=== PATIENT | male | born 1950 ===

== ENCOUNTER 2017-02-16 11:14 | Inpatient (IN) ==
[2017-02-16] MEDS ORDERED: ONDANSETRON 4 MG/2 ML VIAL IV PRN (11:17)
[2017-02-16] MEDS ORDERED: ACETAMINOPHEN 325 MG TABLET PO PRN (11:17)
[2017-02-16] MEDS ORDERED: SODIUM CHLORIDE 0.9% 1,000 ML IV SCH (11:30)
--- NOTE | 2017-02-16 15:52 | Nephrology Consult Note ---
History of Present Illness Chief complaint: ESRD History of present illness: Mr. Anderson is a 66 year old male with end-stage renal disease with dialysis [facility] dialysis unit Monday. His last dialysis was on February 13. He missed dialysis yesterday due to what he describes as "difficulties getting his shower". He presented today with a complaint of a cool left leg and was referred and underwent a CT angiogram today results of which are pending. Potassium was 3.3 at the referring hospital today He is known to have peripheral vascular disease and is status post right below- knee amputation. He is status post laryngectomy for laryngeal cancer. He has a permanent trach. He continues to smoke cigarettes. Physical exam he is able to lie flat and is in no distress with a clear chest. Trach is patent abdomen soft nontender extremities no edema right below knee amputation stump well-healed left heel with dressing in place and both lower extremities below mid are cool. He is not describing any severe pain in the left leg. Impression end-stage renal disease #2 peripheral vascular disease #3 history of laryngeal cancer and status post laryngectomy Plan: Hemodialysis tomorrow and he will be back on his usual Monday schedule. Home Medications Medication Instructions Recorded Confirmed Type Omeprazole [Prilosec] 20 mg PO DAILY 03/28/16 10/08/16 History Carvedilol 6.25 mg PO BID 07/27/16 10/08/16 History Gabapentin Cap/Tab [Neurontin 300 mg PO BEDTIME 07/27/16 10/08/16 History Cap/Tab] Aspirin EC Tab 325 mg PO DAILY 08/16/16 10/08/16 History Atorvastatin [Lipitor] 10 mg PO BEDTIME 08/16/16 10/08/16 History Brimonidine 0.1% Oph Soln 1 drop BOTH EYES TID 08/16/16 10/08/16 History [Alphagan P 0.1% Oph Soln] Calcium Acetate [Phoslo] 2,001 mg PO TID W/MEALS 08/16/16 10/08/16 History Calcium Acetate [Phoslo] 667 mg PO WITH SNACKS 08/16/16 10/08/16 History amLODIPine [Norvasc] 10 mg PO DAILY 08/16/16 10/08/16 History HYDROcodone/ACETAMIN 10-325 [[place] 7.5 tablet PO Q6HR 10/08/16 10/08/16 History 10-325] Allergies Allergy/AdvReac Type Severity Reaction Status Date / Time No Known Allergies Allergy Verified 10/05/16 16:34 Medical,Surgical,& Family Hx - Medical History Cardio: History of: Cerebrovascular Disease, CHF, CAD, Hypertension, [place], PVD, Cardiovascular Problems No history of: Aneurysm, Cardiac Dysrhythmia, Congenital Heart Disease, Pacemaker, Valvular Heart Disease Psychological: No history of: Anxiety Disorders, ADHD, Behavior Problems, Bipolar Disorder, Depression, Previous Suicide Attempt, Psychiatric/Substance Abuse Tx, Schizophrenia, Violent Behavior, Psychiatric Problems Neurology: History of: Cerebrovascular Accident, Peripheral Neuropathy No history of: Brain Aneurysm, Cerebral Hemorrhage, Cerebral Palsy, Dementia , Migraine, Multiple Sclerosis, Parkinson's Disease, Seizures, TIA, Vertigo, Neurologocal Cancer HEENT: History of: Ear Problem (hard of hearing), Glaucoma, Oral Cancer ( Laryngeal Cancer), HEENT Problems (Old Stoma Site from laryngeal cancer removal) No history of: Dental Problems Endocrine: History of: Diabetes Mellitus (IDDM), Diabetes Mellitus (NIDDM), Dyslipidemia No history of: Adrenal Disease, Thyroid Disorder, Endocrine Cancer, Endocrine Problems Rheumatology: History of;: Rheumatoid Arthritis No history of;: Fibromyalgia, Gout, Myasthenia Gravis, Psoriasis, Sjogrens, Systemic Lupus Erythematosus Respiratory: History of: Asthma, COPD, Intubation, Lung Cancer, Respiratory Problems (pt has stoma with strong cough) No history of: Obstructive Sleep Apnea, Pulmonary Embolism, Pulmonary Hypertension, Pneumonia Renal: History of: Dialysis ([facility], Follows with ), Renal Failure, Renal Problems (ESRD) No history of: Renal (Kidney) Cancer Genitourinary: No history of: Bladder Problem, Kidney Stones, Prostate Problems, Recurring Urinary Tract Infections, Genitourinary Cancer Comment Only: Problems (does not void) Gastrointestinal: No history of: Bowel Obstruction, Clostridium Difficile, Crohn's Disease, Diverticulitis/ Diverticulosis, Esophageal Varices, GERD, Gastrointestinal Bleed , Hemorrhoids, Hematochezia, Hepatitis, Liver Problems, Pancreatitis, Polyps, Ulcerative Colitis, Gastrointestinal Cancer, GI Problems Musculoskeletal: History of: Amputation (Right BKA), Back/Neck Problems No history of: Degenerative Disk Disease, Herniated Disk, Osteoporosis, Musculoskeletal Cancer, Musculoskeletal Problems (left lower leg arterial insufficiency, pain , skin brk down, noted on admit) Hematology: History of: Anemia No history of: Blood Transfusion Reaction, Bleeding Problems, Clotting Problems, Sickle Cell Disease, Hematologic Cancer, Blood Disorders Other: History of: Cancer (Hx. of Laryngeal Cancer), Miscellaneous Medical Problems (Right Groin Dialysis Catheter) No history of: Anesthesia Reactions, Anaphylaxis, Eczema, HIV, Malignant Hyperthermia, MRSA, Vancomycin-Resistant Enterococci - Surgical History Cardiac Surgeries: Sugical HX of: Cardiac Catheterization, Vascular Access Devices Patient Denies: Femoral-Popliteal Bypass Graft, Cardiac Surgery, Carotid Endarterectomy, Internal Defibrillator Thoracic Surgeries: Surgical HX of;: Lobectomy (hx of Ca of throat with hx of surg.) Patient denies;: Kidney (Renal Surgery), Lithotripsy, Nephrectomy, Organ Transplant Neurologic Surgeries: Patient denies: Brain Aneurysm, Cerebral Hemorrhage, Neurologic Surgery HEENT Surgeries: Patient denies: Carotid Endarterectomy, Thyroid Surgery Abdominal Surgeries: Patient denies: Abdominal Surgery, Appendectomy, Colonoscopy, Gastric Bypass Surgery, EGD, Hernia Repair, Splenectomy Reproductive Surgeries: Surgical HX of;: Genitourinary Surgery ("they make me go to dialysis") Patient denies;: Cystoscopy, Prostate Surgery - Family History Family History: Reports;: Family Diabetes, Family Heart Disease (Father), Family Hypertension Denies;: Family Anesthesia Reaction, Family Cancer, Family Psychiatric Problems, Family Stroke - Social History Smoking Status: Smoker, status unknown Frequency of Alcohol Use: None Type of Drug Use: None Review of Systems 12 point system: reviewed and no additional remarkable complaints except as stated Exam - Vital Signs Vital signs: Period Temp Pulse Resp BP Sys/Madsen Pulse Ox Last 24 Hr 97.0 F 97 20 121/87 97 - General Appearance General appearance: well-developed, well-nourished, appears started age EENT: ATNC Neck: no JVD, no thyromegaly, no carotid bruit, supple Respiratory: no kyphosis, no scoliosis Cardiology: no murmurs, no rub, no gallops, no edema, regular rate, regular rhythm, normal S1, normal S2 Gastrointestinal: normoactive bowel sounds Integumentary: no rash, warm and dry Neurologic: no focal deficit, no asterixis, alert and oriented x3, reflexes 2+ and symmetric, gait normal, strength 5/5 Musculoskeletal: no deformities, no erythema, no cyanosis, no clubbing Psychiatric: mood/affect appropriate, cooperative Additional exam: R DANNIEA. Permanent tracheostomy Assessment and Plan - Time spent with patient Time spent with patient: Greater than 30 minutes (1) ESRD on hemodialysis Status: Chronic Current Visit: No (2) Diabetes Status: Chronic Current Visit: No Qualifiers: Diabetes mellitus type: type 2 Diabetes mellitus complication detail: with chronic kidney disease Chronic kidney disease stage: on chronic dialysis (3) Tobacco abuse Status: Chronic Current Visit: No (4) Peripheral vascular disease Status: Acute Current Visit: Yes Specialty Discharge - Follow Up or Referrals - Speciality Discharge Instructions Nephrology Instructions: Hemodialysis in AM
--- NOTE | 2017-02-16 18:16 | Event Note ---
02/16/2017 1800 hrs. Patient is complaining of wrist pain in that left foot at this time. It is cool to the touch and he has an ulcer at the heel and the tip of the toe. CTA was done today shows a large amount of collateral flow there may be a significantly narrowed area in the mid femoral region. There is a question in my mind is whether or not there is any flow at the ankle into the foot at this time from what I can see in the CTA. Patient is for dialysis tomorrow will try to manage his pain and discomfort at this point but look at the possibility that he may need an amputation. We will plan to consult Dr. Bird to look at this vascular process see if he thinks anything could be done to that at this time. Whether that would prevent him from having an amputation I am not sure at this point but have my doubts.
--- NOTE | 2017-02-16 18:24 | General Surg History&Physical ---
Assessment and Plan - Time spent with patient Time spent with patient: Greater than 30 minutes (1) Peripheral vascular disease Status: Acute Assessment and plan: Impression: Peripheral arterial disease of the left lower extremity with rest pain of the foot and ulcerations. Plan: Basic wound care We will consult Dr. Bird for evaluation to see if there is anything that might improve circulation. May be facing possible amputation. Current Visit: No (2) End stage renal disease on dialysis Problem details: Tolerated HD yesterday s complications. Routine HD Monday. UF to EDW as tolerated by hemodynamics. Status: Chronic Assessment and plan: Impression: Chronic renal failure dialysis patient Plan: Nephrology to manage Current Visit: No (3) Status post below knee amputation of right lower extremity Status: Chronic Assessment and plan: Impression status post right BKA amputation secondary to poor circulation Current Visit: No (4) Diabetes Status: Chronic Assessment and plan: Impression: Diabetes mellitus adult onset Medical manage Current Visit: No Qualifiers: Diabetes mellitus type: type 2 Diabetes mellitus complication detail: with chronic kidney disease Chronic kidney disease stage: on chronic dialysis (5) History of laryngectomy Status: Chronic Assessment and plan: Impression: Status post laryngectomy for cancer stable with no evidence of any recurrence Current Visit: No History of Present Illness Chief complaint: Increasing pain and discomfort of the left foot History of present illness: Mr. Anderson is a 66 year old male diabetic chronic renal failure patient who was transferred down here as a direct admit because Ramsay was telling us how ischemic and bad the left foot appeared. He was admitted and renal was consulted. A CTA was performed on the patient which showed us better flow than we anticipated but it seems to cut off at the level of the ankle. There is a narrowed area in the mid femoral vessels that might be amenable to a stent. Will consult Dr. Bird to evaluate to see what his recommendations might be. There is a history that Dr. Faria may have done some vascular reconstruction on this patient in the past eventually he had a failure that resulted in a right BKA. Will start some wound care to the ulcers of the left foot while we are getting him dialyzed to get evaluated vascular caruso. I am suspecting that we are going to be forced to consider an amputation on the left. Home Medications Medication Instructions Recorded Confirmed Type Omeprazole [Prilosec] 20 mg PO DAILY 03/28/16 10/08/16 History Carvedilol 6.25 mg PO BID 07/27/16 10/08/16 History Gabapentin Cap/Tab [Neurontin 300 mg PO BEDTIME 07/27/16 10/08/16 History Cap/Tab] Aspirin EC Tab 325 mg PO DAILY 08/16/16 10/08/16 History Atorvastatin [Lipitor] 10 mg PO BEDTIME 08/16/16 10/08/16 History Brimonidine 0.1% Oph Soln 1 drop BOTH EYES TID 08/16/16 10/08/16 History [Alphagan P 0.1% Oph Soln] Calcium Acetate [Phoslo] 2,001 mg PO TID W/MEALS 08/16/16 10/08/16 History Calcium Acetate [Phoslo] 667 mg PO WITH SNACKS 08/16/16 10/08/16 History amLODIPine [Norvasc] 10 mg PO DAILY 08/16/16 10/08/16 History HYDROcodone/ACETAMIN 10-325 [[place] 7.5 tablet PO Q6HR 10/08/16 10/08/16 History 10-325] Allergies Allergy/AdvReac Type Severity Reaction Status Date / Time No Known Allergies Allergy Verified 10/05/16 16:34 Medical,Surgical,& Family Hx - Medical History Cardio: History of: Cerebrovascular Disease, CHF, CAD, Hypertension, [place], PVD, Cardiovascular Problems No history of: Aneurysm, Cardiac Dysrhythmia, Congenital Heart Disease, Pacemaker, Valvular Heart Disease Psychological: No history of: Anxiety Disorders, ADHD, Behavior Problems, Bipolar Disorder, Depression, Previous Suicide Attempt, Psychiatric/Substance Abuse Tx, Schizophrenia, Violent Behavior, Psychiatric Problems Neurology: History of: Cerebrovascular Accident, Peripheral Neuropathy No history of: Brain Aneurysm, Cerebral Hemorrhage, Cerebral Palsy, Dementia , Migraine, Multiple Sclerosis, Parkinson's Disease, Seizures, TIA, Vertigo, Neurologocal Cancer HEENT: History of: Ear Problem (hard of hearing), Glaucoma, Oral Cancer ( Laryngeal Cancer), HEENT Problems (Old Stoma Site from laryngeal cancer removal) No history of: Dental Problems Endocrine: History of: Diabetes Mellitus (IDDM), Diabetes Mellitus (NIDDM), Dyslipidemia No history of: Adrenal Disease, Thyroid Disorder, Endocrine Cancer, Endocrine Problems Rheumatology: History of;: Rheumatoid Arthritis No history of;: Fibromyalgia, Gout, Myasthenia Gravis, Psoriasis, Sjogrens, Systemic Lupus Erythematosus Respiratory: History of: Asthma, COPD, Intubation, Lung Cancer, Respiratory Problems (pt has stoma with strong cough) No history of: Obstructive Sleep Apnea, Pulmonary Embolism, Pulmonary Hypertension, Pneumonia Renal: History of: Dialysis ([facility], Follows with ), Renal Failure, Renal Problems (ESRD) No history of: Renal (Kidney) Cancer Genitourinary: No history of: Bladder Problem, Kidney Stones, Prostate Problems, Recurring Urinary Tract Infections, Genitourinary Cancer Comment Only: Problems (does not void) Gastrointestinal: No history of: Bowel Obstruction, Clostridium Difficile, Crohn's Disease, Diverticulitis/ Diverticulosis, Esophageal Varices, GERD, Gastrointestinal Bleed , Hemorrhoids, Hematochezia, Hepatitis, Liver Problems, Pancreatitis, Polyps, Ulcerative Colitis, Gastrointestinal Cancer, GI Problems Musculoskeletal: History of: Amputation (Right BKA), Back/Neck Problems No history of: Degenerative Disk Disease, Herniated Disk, Osteoporosis, Musculoskeletal Cancer, Musculoskeletal Problems (left lower leg arterial insufficiency, pain , skin brk down, noted on admit) Hematology: History of: Anemia No history of: Blood Transfusion Reaction, Bleeding Problems, Clotting Problems, Sickle Cell Disease, Hematologic Cancer, Blood Disorders Other: History of: Cancer (Hx. of Laryngeal Cancer), Miscellaneous Medical Problems (Right Groin Dialysis Catheter) No history of: Anesthesia Reactions, Anaphylaxis, Eczema, HIV, Malignant Hyperthermia, MRSA, Vancomycin-Resistant Enterococci - Surgical History Cardiac Surgeries: Sugical HX of: Cardiac Catheterization, Vascular Access Devices Patient Denies: Femoral-Popliteal Bypass Graft, Cardiac Surgery, Carotid Endarterectomy, Internal Defibrillator Thoracic Surgeries: Surgical HX of;: Lobectomy (hx of Ca of throat with hx of surg.) Patient denies;: Kidney (Renal Surgery), Lithotripsy, Nephrectomy, Organ Transplant Neurologic Surgeries: Patient denies: Brain Aneurysm, Cerebral Hemorrhage, Neurologic Surgery HEENT Surgeries: Patient denies: Carotid Endarterectomy, Thyroid Surgery Abdominal Surgeries: Patient denies: Abdominal Surgery, Appendectomy, Colonoscopy, Gastric Bypass Surgery, EGD, Hernia Repair, Splenectomy Reproductive Surgeries: Surgical HX of;: Genitourinary Surgery ("they make me go to dialysis") Patient denies;: Cystoscopy, Prostate Surgery - Family History Family History: Reports;: Family Diabetes, Family Heart Disease (Father), Family Hypertension Denies;: Family Anesthesia Reaction, Family Cancer, Family Psychiatric Problems, Family Stroke - Social History Smoking Status: Smoker, status unknown Frequency of Alcohol Use: None Type of Drug Use: None Exam - Constitutional Vitals: Period Temp Pulse Resp BP Sys/Madsen Pulse Ox Last 24 Hr 97.0 F 97 20 121/87 97 General appearance: mild distress - Head Head exam: Present: normal inspection - ENT ENT exam: Present: normal exam - Neck Neck exam: Present: normal inspection - Respiratory Respiratory exam: Present: clear to auscultation bilaterally, rales - Cardiovascular Cardiovascular exam: Present: RRR - GI/Abdominal GI/Abdominal exam: Present: normal bowel sounds, soft - Extremities Exam Extremities exam: Present: other (Right BKA amputation. Left foot is cool with an ulcer at the tip of the first toe and ulcer of the left heel. There is some discoloration of the forefoot at this time.) - Back Exam Back exam: Present: normal inspection - Neurological Exam Neurological exam: Present: alert, oriented X3, CN II-XII intact - Skin Skin exam: Present: normal color, warm, dry 12 point system: reviewed and no additional remarkable complaints except as stated Quality Measures - VTE Contraindication to Pharmacological VTE Prophylaxis: High Risk of Bleeding Contraindication to Mechanical VTE Prophylaxis: Ischemic Vascular Disease Results - Labs Lab Results: I have reviewed the past 24 hour labs
[2017-02-16] MEDS ORDERED: CALCIUM ACETATE 667 MG CAPSULE PO SCH (18:30)
--- NOTE | 2017-02-16 18:54 | CT Report ---
Exam: CT angio abdomen/femoral Date: 02/16/2017 11:27 AM Comparison: Prior CTA 12/01/2015, Indication: Peripheral vascular disease, history of right [id number] amputation Technical: Axial CT imaging was performed from the lung bases through the iliac crest with to the toes. Coronal and sagittal reformatted images were additionally created and submitted for review. 3-D Maximal intensity projection images of the vasculature were additionally created and are available for review. 100 cc of Omnipaque 350 were utilized. Dose reduction: This CT exam was performed using one or more of the following dose reduction techniques: Automated exposure control, automated adjustment of the mA and/or KV according to patient size, or use of iterative reconstruction technique. Total DLP: 1138 mGy*cm Findings: CT angiogram: Abdomen/pelvis. Descending thoracic aorta is nonaneurysmal. There is extensive atherosclerotic plaque is noted throughout the abdominal aorta and all major visceral arterial branches. There is no evidence of abdominal aortic aneurysm. There is no significant stenosis within the aortic or iliac vasculature. Of note, some of the small vessels within the viscera are poorly evaluated given the dense calcific plaque throughout the vessel and limited visualization of the true lumen. There is suggestion of mild stenosis at the proximal celiac and superior mesenteric arteries. Bilateral renal arteries also demonstrate extensive atherosclerotic plaque but no significant stenosis is evident. Inferior mesenteric artery is severely narrowed proximally but appears patent distally likely from collateral flow. Bilateral internal iliac vessels also demonstrate multifocal atherosclerotic plaque but appear patent. Right lower extremity:Circumferential atherosclerotic plaque is noted at the right common femoral artery with no significant luminal stenosis suggested. Moderate focal stenosis is suggested at the proximal SFA (axial image 147), this is similar to prior. Additional extensive atherosclerotic plaque throughout the superficial femoral artery is noted throughout the thigh. Limited contrast bolus is suggested within the right leg, possibly due to contrast bolus timing. There is no suggestion of high-grade stenosis within the superficial femoral artery. There is suggestion of focal moderate severe stenosis within the proximal popliteal artery although this is poorly evaluated due to dense atherosclerotic plaque (axial images [id number]). Limited visualization of the vasculature is noted at/below the knee and [id number] amputation post surgical changes are now noted on the right. Left lower extremity: Extensive atherosclerotic calcification is noted at the common, superficial and deep femoral arteries. Limited contrast bolus is present within the distal SFA but no high-grade stenosis is suggested until the abductor hiatus where moderate to severe stenosis is suggested (axial image [id number]). Again, there is extensive atherosclerotic plaque throughout the popliteal artery with suggestion of at least multifocal moderate stenosis but detailed evaluation of the lumen is limited due to extensive circumferential plaque. Delayed images do demonstrate opacification within the distal popliteal artery with normal trifurcation. The small vessels below the knee are not well evaluated given extensive atherosclerotic plaque. There is suggestion of opacification within the anterior tibial artery at the ankle/foot. The peroneal and posterior tibial arteries are poorly evaluated. Soft tissue analysis: Lung bases: Development of small bilateral pleural effusions and posterior basilar atelectasis. Four-chamber cardiomegaly is noted. There is significant reflux of contrast into the intrahepatic veins and subhepatic IVC compatible with a degree of right heart dysfunction. Liver and gallbladder: No abnormal focal lesions are identified within the liver. Portal vein is not well visualized due to contrast bolus timing. No biliary ductal dilatation or gallstones. Spleen: Unremarkable Pancreas: Unremarkable Adrenals: Unremarkable Kidneys: Both kidneys are atrophic but otherwise grossly symmetric in appearance with no hydronephrosis or focal lesions Bowel and Mesentery: Small bowel is nondilated. There is no free air within the abdomen. Minimal free fluid is noted in the lower abdomen/pelvis, which is nonspecific. There is no mesenteric adenopathy.. Retroperitoneum: No enlarged lymph nodes. IVC: Patent Pelvis: Bladder: Bladder appears mildly distended but otherwise grossly unremarkable for CT technique. Fluid: Fluid is noted in the dependent pelvis, which is nonspecific. Lymph nodes: No adenopathy. Pelvic organs: Prostate is not enlarged Osseous structures: Right below the knee amputation post surgical changes are noted. No suspicious osseous lesions are identified mild degenerative changes are noted in the lower lumbar spine. Impression: 1. Similar extensive atherosclerotic plaque within the abdominal aorta and visceral branches with no evidence of aortoiliac aneurysm or significant stenosis. Evaluation of possible stenosis within the visceral branches is severely limited given the dense calcium deposition within the vessels. 2. Interval amputation of the right lower leg. Extensive atherosclerotic calcification through the right leg vasculature limits evaluation of the residual patent lumen. 3. Extensive calcification throughout the superficial femoral and popliteal vessels in the left leg. There is suggestion of at least moderate focal stenosis at the distal SFA with possible 1 vessel runoff to the left foot via the anterior tibial artery. Visualization of the tibia peroneal vessels is severely limited given atherosclerotic plaque. 4. Development of small bilateral pleural effusions and posterior basilar atelectasis. Minimal free fluid in the dependent pelvis is nonspecific. 5. Four-chamber cardiomegaly is new from prior with suggestion of right heart dysfunction. Correlation with dedicated cardiac evaluation and echocardiogram is recommended. PROCEDURE INTERPRETED AT [facility] DEPARTMENT OF RADIOLOGY Final Report Signed by: Joaquin Spencer
[2017-02-16] MEDS: CARVEDILOL 6.25 MG TABLET PO SCH (22:05)
[2017-02-16] MEDS: ATORVASTATIN 10 MG TABLET PO SCH (22:06)
[2017-02-16] MEDS: PENTOXIFYLLINE 400 MG TABLET PO SCH (22:06)
[2017-02-16] MEDS: GABAPENTIN 300 MG CAPSULE PO SCH (22:06)
[2017-02-16] MEDS: BRIMONIDINE 0.1% OPH SOLN 5 ML BOTTLE BOTH EYES SCH (23:37)
[2017-02-17] MEDS: PENTOXIFYLLINE 400 MG TABLET PO SCH ×4 (07:52→21:58)
[2017-02-17] MEDS: ASPIRIN EC 325 MG TABLET PO SCH ×2 (07:52→10:49)
[2017-02-17] MEDS: PANTOPRAZOLE 40 MG TABLET PO SCH ×2 (07:52→10:49)
[2017-02-17] MEDS: CARVEDILOL 6.25 MG TABLET PO SCH ×3 (07:53→22:03)
[2017-02-17] MEDS: CALCIUM ACETATE 667 MG CAPSULE PO SCH ×3 (07:55→17:40)
[2017-02-17] MEDS: BRIMONIDINE 0.1% OPH SOLN 5 ML BOTTLE BOTH EYES SCH ×4 (07:56→22:03)
--- NOTE | 2017-02-17 08:46 | Dialysis Note ---
Dialysis Note - Dialysis Note Mr. Anderson is seen during his hemodialysis. He is not short of breath and is fairly comfortable. Review of his CT angiogram and a plan for care is in the works. Will continue to support with hemodialysis.
[2017-02-17] MEDS ORDERED: NON-FORMULARY MEDICATION (Omeprazole [Prilosec] 20 MG) PO SCH (09:00)
--- NOTE | 2017-02-17 09:45 | Vascular Surgery Consult Note ---
History of Present Illness Chief complaint: iaschemic left foot History of present illness: Mr. Anderson is a 66 year old male Mr. Anderson is a 66-year-old gentleman with previous history of diabetic peripheral vascular disease and right BK amputation. Been admitted with ischemic left foot with ulceration CT angiogram has been done which I have evaluated. He appears to have extensive calcified vessels throughout his abdominal aorta and femoral systems but open vessels to the level of the ankle which then had no visualization unclear looking at the CTA much of these vessels are truly open and how much they appear to be open just due to the calcification. I do not see anything that I would immediately recommend surgical revascularization on but I do think a formal arteriogram with consideration for endovascular revascularization may be feasible. I will consult to interventional radiology to review the situation consider the formal arteriogram. Home Medications Medication Instructions Recorded Confirmed Type Omeprazole [Prilosec] 20 mg PO DAILY 03/28/16 10/08/16 History Carvedilol 6.25 mg PO BID 07/27/16 10/08/16 History Gabapentin Cap/Tab [Neurontin 300 mg PO BEDTIME 07/27/16 10/08/16 History Cap/Tab] Aspirin EC Tab 325 mg PO DAILY 08/16/16 10/08/16 History Atorvastatin [Lipitor] 10 mg PO BEDTIME 08/16/16 10/08/16 History Brimonidine 0.1% Oph Soln 1 drop BOTH EYES TID 08/16/16 10/08/16 History [Alphagan P 0.1% Oph Soln] Calcium Acetate [Phoslo] 2,001 mg PO TID W/MEALS 08/16/16 10/08/16 History Calcium Acetate [Phoslo] 667 mg PO WITH SNACKS 08/16/16 10/08/16 History amLODIPine [Norvasc] 10 mg PO DAILY 08/16/16 10/08/16 History HYDROcodone/ACETAMIN 10-325 [[place] 7.5 tablet PO Q6HR 10/08/16 10/08/16 History 10-325] Allergies Allergy/AdvReac Type Severity Reaction Status Date / Time No Known Allergies Allergy Verified 10/05/16 16:34 Medical,Surgical,& Family Hx - Medical History Cardio: History of: Cerebrovascular Disease, CHF, CAD, Hypertension, [place], PVD, Cardiovascular Problems No history of: Aneurysm, Cardiac Dysrhythmia, Congenital Heart Disease, Pacemaker, Valvular Heart Disease Psychological: No history of: Anxiety Disorders, ADHD, Behavior Problems, Bipolar Disorder, Depression, Previous Suicide Attempt, Psychiatric/Substance Abuse Tx, Schizophrenia, Violent Behavior, Psychiatric Problems Neurology: History of: Cerebrovascular Accident, Peripheral Neuropathy No history of: Brain Aneurysm, Cerebral Hemorrhage, Cerebral Palsy, Dementia , Migraine, Multiple Sclerosis, Parkinson's Disease, Seizures, TIA, Vertigo, Neurologocal Cancer HEENT: History of: Ear Problem (hard of hearing), Glaucoma, Oral Cancer ( Laryngeal Cancer), HEENT Problems (Old Stoma Site from laryngeal cancer removal) No history of: Dental Problems Endocrine: History of: Diabetes Mellitus (IDDM), Diabetes Mellitus (NIDDM), Dyslipidemia No history of: Adrenal Disease, Thyroid Disorder, Endocrine Cancer, Endocrine Problems Rheumatology: History of;: Rheumatoid Arthritis No history of;: Fibromyalgia, Gout, Myasthenia Gravis, Psoriasis, Sjogrens, Systemic Lupus Erythematosus Respiratory: History of: Asthma, COPD, Intubation, Lung Cancer, Respiratory Problems (pt has stoma with strong cough) No history of: Obstructive Sleep Apnea, Pulmonary Embolism, Pulmonary Hypertension, Pneumonia Renal: History of: Dialysis ([facility], Follows with ), Renal Failure, Renal Problems (ESRD) No history of: Renal (Kidney) Cancer Genitourinary: No history of: Bladder Problem, Kidney Stones, Prostate Problems, Recurring Urinary Tract Infections, Genitourinary Cancer Comment Only: Problems (does not void) Gastrointestinal: No history of: Bowel Obstruction, Clostridium Difficile, Crohn's Disease, Diverticulitis/ Diverticulosis, Esophageal Varices, GERD, Gastrointestinal Bleed , Hemorrhoids, Hematochezia, Hepatitis, Liver Problems, Pancreatitis, Polyps, Ulcerative Colitis, Gastrointestinal Cancer, GI Problems Musculoskeletal: History of: Amputation (Right BKA), Back/Neck Problems No history of: Degenerative Disk Disease, Herniated Disk, Osteoporosis, Musculoskeletal Cancer, Musculoskeletal Problems (left lower leg arterial insufficiency, pain , skin brk down, noted on admit) Hematology: History of: Anemia No history of: Blood Transfusion Reaction, Bleeding Problems, Clotting Problems, Sickle Cell Disease, Hematologic Cancer, Blood Disorders Other: History of: Cancer (Hx. of Laryngeal Cancer), Miscellaneous Medical Problems (Right Groin Dialysis Catheter) No history of: Anesthesia Reactions, Anaphylaxis, Eczema, HIV, Malignant Hyperthermia, MRSA, Vancomycin-Resistant Enterococci - Surgical History Cardiac Surgeries: Sugical HX of: Cardiac Catheterization, Vascular Access Devices Patient Denies: Femoral-Popliteal Bypass Graft, Cardiac Surgery, Carotid Endarterectomy, Internal Defibrillator Thoracic Surgeries: Surgical HX of;: Lobectomy (hx of Ca of throat with hx of surg.) Patient denies;: Kidney (Renal Surgery), Lithotripsy, Nephrectomy, Organ Transplant Neurologic Surgeries: Patient denies: Brain Aneurysm, Cerebral Hemorrhage, Neurologic Surgery HEENT Surgeries: Patient denies: Carotid Endarterectomy, Thyroid Surgery Abdominal Surgeries: Patient denies: Abdominal Surgery, Appendectomy, Colonoscopy, Gastric Bypass Surgery, EGD, Hernia Repair, Splenectomy Reproductive Surgeries: Surgical HX of;: Genitourinary Surgery ("they make me go to dialysis") Patient denies;: Cystoscopy, Prostate Surgery - Family History Family History: Reports;: Family Diabetes, Family Heart Disease (Father), Family Hypertension Denies;: Family Anesthesia Reaction, Family Cancer, Family Psychiatric Problems, Family Stroke - Social History Smoking Status: Smoker, status unknown Frequency of Alcohol Use: None Type of Drug Use: None Exam - Constitutional Vitals: Period Temp Pulse Resp BP Sys/Madsen Pulse Ox Last 24 Hr 96.6 F-97.1 F 69-97 18-20 83-126/30-87 87-97 Quality Measures - VTE Contraindication to Pharmacological VTE Prophylaxis: High Risk of Bleeding Contraindication to Mechanical VTE Prophylaxis: Ischemic Vascular Disease
--- NOTE | 2017-02-17 10:28 | General Surgery Progress Note ---
Assessment and Plan - Time spent with patient Time spent with patient: Greater than 30 minutes (1) Peripheral vascular disease Status: Acute Assessment and plan: 02/17/2017. Ischemic peripheral vascular disease, progressive with left lower extremity ulcerations. Dr. Heath's consult was reviewed. We appreciate his willingness to consult with interventional radiology for consideration of formal arteriogram to see if there are any maneuvers that can increase blood flow to this patient with severe rest pain. Current Visit: No (2) Nausea & vomiting Status: Acute Assessment and plan: 02/17/2017. No complaint of nausea and vomiting. We will go ahead and get an abdominal film. We will treat this symptomatically with Zofran. It might be related to his medications or gastroparesis; another etiology could be constipation, as he does use quite a lot of narcotics for his lower extremity rest pain. The plain films show no evidence of obstruction and a good deal of stool in the colon, we will plan to treat this with laxatives. Current Visit: Yes Subjective Patient reports: Present: nausea. Absent: tolerating a regular diet Exam - Constitutional Vitals: Period Temp Pulse Resp BP Sys/Madsen Pulse Ox Last 24 Hr 96.6 F-97.1 F 69-97 18-20 83-126/30-87 87-97 General appearance: under weight, other (Patient's hemodialysis. He is complaining of nausea this morning. Since this began this morning and reports she was not able to eat his breakfast. He said he had a normal bowel movement yesterday. It is not associated with any pain.) - Respiratory Respiratory exam: Present: clear to auscultation bilaterally - Cardiovascular Cardiovascular exam: Present: RRR, other (Distant heart sounds) - GI/Abdominal GI/Abdominal exam: Present: hypoactive bowel sounds, soft. Absent: distended, guarding, tenderness - Extremities Exam Extremities exam: Present: other (Left lower extremity with stable eschar on the left great toe. The foot is markedly discolored, with darkening of the skin distally and the ankle outward. The foot is slightly cool to touch, without any gross gangrenous change. It is tender, without edema.) - Neurological Exam Neurological exam: Present: alert, oriented X3 Results - Diagnostic Findings Procedure: CT: image reviewed by me, report reviewed by me (CT angiogram and images reviewed with Dr. Tovar. chart note also was appreciated) Quality Measures - VTE Contraindication to Pharmacological VTE Prophylaxis: High Risk of Bleeding Contraindication to Mechanical VTE Prophylaxis: Ischemic Vascular Disease
[2017-02-17] MEDS: amLODIPine 10 MG TABLET PO SCH (14:36)
[2017-02-17] MEDS: BACITRACIN OINT 0.9 GM PACK TOP SCH (17:41)
[2017-02-17] MEDS: SODIUM HYPOCHLORITE 0.25% IRRIG 473 ML BOTTLE TOP SCH (17:41)
--- NOTE | 2017-02-17 17:57 | Inventional Radiology Consult ---
Assessment and Plan - Time spent with patient Time spent with patient: Less than 30 minutes (1) Peripheral vascular disease Problem details: known longstanding PVD with right BKA in the last year Status : Acute Assessment and plan: last arteriogram showed extensive calcification in the left leg but a weak three vessel run off was present CTA is difficult to evaluate due to extensive calcification A formal LLE arteriogram would likely be the best way to see what's going on. Dr. Baltazar with be here next week and he can decide on the necessity and timing of the arteriogram. Please NPO monday for possible angiogram monday. I d/w with Ivana Current Visit: Yes IR Consult - Data of Consult Patient: known to practice within the last 3 years Consult date: 02/17/17 Requesting Physician: Rony Heath - Consult Narrative Reason for consult: PVD, right BKA, left rest pain, ischemic ulceration History of present illness: Justin is a 66 year old M The patient has known peripheral vascular disease with extensive atherosclerosis of the superficial femoral, popliteal and tibioperoneal vessels bilaterally. This patient has a history of right BKA and now has developed left foot ischemic ulcerations with mild rest pain and severe claudication with any significant effort. Today the patient was not in the remaining until after noon due to dialysis. Also during the interview, the patient was eating lunch. Therefore any procedure will be postponed until next week. No chest pain. No shortness of breath. No nausea, vomiting, diarrhea. No reported fevers. - Home Medications and Allergies Home Medications: Home Medications Medication Instructions Recorded Confirmed Type Omeprazole [Prilosec] 20 mg PO DAILY 03/28/16 10/08/16 History Carvedilol 6.25 mg PO BID 07/27/16 10/08/16 History Gabapentin Cap/Tab [Neurontin 300 mg PO BEDTIME 07/27/16 10/08/16 History Cap/Tab] Aspirin EC Tab 325 mg PO DAILY 08/16/16 10/08/16 History Atorvastatin [Lipitor] 10 mg PO BEDTIME 08/16/16 10/08/16 History Brimonidine 0.1% Oph Soln 1 drop BOTH EYES TID 08/16/16 10/08/16 History [[place] P 0.1% Oph Soln] Calcium Acetate [Phoslo] 2,001 mg PO TID W/MEALS 08/16/16 10/08/16 History Calcium Acetate [Phoslo] 667 mg PO WITH SNACKS 08/16/16 10/08/16 History amLODIPine [Norvasc] 10 mg PO DAILY 08/16/16 10/08/16 History HYDROcodone/ACETAMIN 10-325 [[place] 7.5 tablet PO Q6HR 10/08/16 10/08/16 History 10-325] Allergies/Adverse Reactions: Allergies Allergy/AdvReac Type Severity Reaction Status Date / Time No Known Allergies Allergy Verified 10/05/16 16:34 12 point system: reviewed and no additional remarkable complaints except as stated Medical,Surgical,& Family Hx - Medical History Cardio: History of: Cerebrovascular Disease, CHF, CAD, Hypertension, [place], PVD, Cardiovascular Problems No history of: Aneurysm, Cardiac Dysrhythmia, Congenital Heart Disease, Pacemaker, Valvular Heart Disease Psychological: No history of: Anxiety Disorders, ADHD, Behavior Problems, Bipolar Disorder, Depression, Previous Suicide Attempt, Psychiatric/Substance Abuse Tx, Schizophrenia, Violent Behavior, Psychiatric Problems Neurology: History of: Cerebrovascular Accident, Peripheral Neuropathy No history of: Brain Aneurysm, Cerebral Hemorrhage, Cerebral Palsy, Dementia , Migraine, Multiple Sclerosis, Parkinson's Disease, Seizures, TIA, Vertigo, Neurologocal Cancer HEENT: History of: Ear Problem (hard of hearing), Glaucoma, Oral Cancer ( Laryngeal Cancer), HEENT Problems (Old Stoma Site from laryngeal cancer removal) No history of: Dental Problems Endocrine: History of: Diabetes Mellitus (IDDM), Diabetes Mellitus (NIDDM), Dyslipidemia No history of: Adrenal Disease, Thyroid Disorder, Endocrine Cancer, Endocrine Problems Rheumatology: History of;: Rheumatoid Arthritis No history of;: Fibromyalgia, Gout, Myasthenia Gravis, Psoriasis, Sjogrens, Systemic Lupus Erythematosus Respiratory: History of: Asthma, COPD, Intubation, Lung Cancer, Respiratory Problems (pt has stoma with strong cough) No history of: Obstructive Sleep Apnea, Pulmonary Embolism, Pulmonary Hypertension, Pneumonia Renal: History of: Dialysis ([facility], Follows with ), Renal Failure, Renal Problems (ESRD) No history of: Renal (Kidney) Cancer Genitourinary: No history of: Bladder Problem, Kidney Stones, Prostate Problems, Recurring Urinary Tract Infections, Genitourinary Cancer Comment Only: Problems (does not void) Gastrointestinal: No history of: Bowel Obstruction, Clostridium Difficile, Crohn's Disease, Diverticulitis/ Diverticulosis, Esophageal Varices, GERD, Gastrointestinal Bleed , Hemorrhoids, Hematochezia, Hepatitis, Liver Problems, Pancreatitis, Polyps, Ulcerative Colitis, Gastrointestinal Cancer, GI Problems Musculoskeletal: History of: Amputation (Right BKA), Back/Neck Problems No history of: Degenerative Disk Disease, Herniated Disk, Osteoporosis, Musculoskeletal Cancer, Musculoskeletal Problems (left lower leg arterial insufficiency, pain , skin brk down, noted on admit) Hematology: History of: Anemia No history of: Blood Transfusion Reaction, Bleeding Problems, Clotting Problems, Sickle Cell Disease, Hematologic Cancer, Blood Disorders Other: History of: Cancer (Hx. of Laryngeal Cancer), Miscellaneous Medical Problems (Right Groin Dialysis Catheter) No history of: Anesthesia Reactions, Anaphylaxis, Eczema, HIV, Malignant Hyperthermia, MRSA, Vancomycin-Resistant Enterococci - Surgical History Cardiac Surgeries: Sugical HX of: Cardiac Catheterization, Vascular Access Devices Patient Denies: Femoral-Popliteal Bypass Graft, Cardiac Surgery, Carotid Endarterectomy, Internal Defibrillator Thoracic Surgeries: Surgical HX of;: Lobectomy (hx of Ca of throat with hx of surg.) Patient denies;: Kidney (Renal Surgery), Lithotripsy, Nephrectomy, Organ Transplant Neurologic Surgeries: Patient denies: Brain Aneurysm, Cerebral Hemorrhage, Neurologic Surgery HEENT Surgeries: Patient denies: Carotid Endarterectomy, Thyroid Surgery Abdominal Surgeries: Patient denies: Abdominal Surgery, Appendectomy, Colonoscopy, Gastric Bypass Surgery, EGD, Hernia Repair, Splenectomy Reproductive Surgeries: Surgical HX of;: Genitourinary Surgery ("they make me go to dialysis") Patient denies;: Cystoscopy, Prostate Surgery - Family History Family History: Reports;: Family Diabetes, Family Heart Disease (Father), Family Hypertension Denies;: Family Anesthesia Reaction, Family Cancer, Family Psychiatric Problems, Family Stroke - Social History Smoking Status: Current every day smoker Frequency of Alcohol Use: None Type of Drug Use: None Exam - Labs Lab Results: I have reviewed the past 24 hour labs - Constitutional Vitals: Period Temp Pulse Resp BP Sys/Madsen Pulse Ox Last 24 Hr 96.4 F-97.8 F 63-94 18-20 83-124/30-72 87-95 - Eye Eye exam: Present: EOMI - ENT ENT exam: Present: other (tracheostomy) - Respiratory Respiratory exam: Present: clear to auscultation bilaterally - Cardiovascular Cardiovascular exam: Present: regular rate and rhythm Peripheral pulses: 0: Dorsalis Pedis (L), 2+: Common Femoral (R), Common Femoral (L) - GI/Abdominal GI/Abdominal exam: Present: normal bowel sounds - Neurological Exam Neurological exam: Present: alert, oriented X3 - Psychiatric Psychiatric exam: Present: normal affect, normal mood - Skin Skin exam: Present: normal color, dry
--- NOTE | 2017-02-17 18:24 | XRay Report ---
History: Nausea and vomiting Date: 02/17/2017 Study: Flat and decubitus abdomen Comparison exam: December 27, 2015 There is no evidence of pneumoperitoneum on the decubitus view. The bowel gas pattern is nonobstructive without gross mass lesion. There is prominent arterial vascular calcification. Phleboliths overlie the pelvis bilaterally. There is mild to moderate lumbar spondylosis and mild lumbar degenerative disc narrowing. Impression: No definite acute abdominal process PROCEDURE INTERPRETED AT [facility] DEPARTMENT OF RADIOLOGY Final Report Signed by: Dr. Reanna Castle
[2017-02-17] MEDS: ATORVASTATIN 10 MG TABLET PO SCH (21:57)
[2017-02-17] MEDS: GABAPENTIN 300 MG CAPSULE PO SCH (21:58)
[2017-02-18 03:49] LABS: Basophils % 0.4 % (0.0-0.8); Eosinophils % 0.6 % (0.00-10.9); Hematocrit 35.1 VOL% (42.0-52.0); Hemoglobin 11.3 GM/DL (14.0-18.0); Immature Granulocytes % 0.6 %; Immature Granulocytes Absolute 0.04 #; Lymphocytes # 0.6 10*3/uL (1.4-4.0); Lymphocytes % 8.6 % (21.2-54.2); Mean Corpuscular HGB Conc 32.2 GM/DL (32-36); Mean Corpuscular Hemoglobin 31 PG (27-34); Mean Corpuscular Volume 97.2 FL (87-102); Mean Platelet Volume 11.5 FL (9.6-12.0); Monocytes # 0.6 10*3/uL (0.11-0.8); Monocytes % 9.3 % (1.7-12.7); NRBC # 0.04 10*3/uL; Neutrophils # 5.4 10*3/uL (1.4-7.4); Neutrophils % 80.5 % (38.7-73.9); Red Blood Count 3.61 MC/CUMM (3.8-5.5); White Blood Count 6.8 T/CUMM (4-12)
[2017-02-18 04:03] LABS: Platelet Count 73 T/CUMM (130-400)
[2017-02-18 04:30] LABS: Albumin 2.6 G/DL (3.4-5.0); Bilirubin,Total 1.7 MG/DL (0.2-1.0); Calcium 8.8 MG/DL (8.5-10.1); Osmolality,Calculated 277.7 MOS/KG (273-304); Potassium 3.9 MMOL/L (3.5-5.1)
[2017-02-18 05:01] LABS: Ovalocytes 1+; Platelet Estimate Decreased; Polychromasia Few
[2017-02-18 05:02] LABS: Hypochromasia 1+
[2017-02-18] MEDS: CALCIUM ACETATE 667 MG CAPSULE PO SCH ×3 (07:56→17:09)
[2017-02-18] MEDS: amLODIPine 10 MG TABLET PO SCH (08:01)
[2017-02-18] MEDS: ASPIRIN EC 325 MG TABLET PO SCH (08:02)
[2017-02-18] MEDS: PENTOXIFYLLINE 400 MG TABLET PO SCH ×3 (08:02→21:48)
[2017-02-18] MEDS: PANTOPRAZOLE 40 MG TABLET PO SCH (08:02)
[2017-02-18] MEDS: SODIUM HYPOCHLORITE 0.25% IRRIG 473 ML BOTTLE TOP SCH (08:02)
[2017-02-18] MEDS: CARVEDILOL 6.25 MG TABLET PO SCH ×2 (08:02→21:38)
[2017-02-18] MEDS: BACITRACIN OINT 0.9 GM PACK TOP SCH (08:03)
[2017-02-18] MEDS: BRIMONIDINE 0.1% OPH SOLN 5 ML BOTTLE BOTH EYES SCH ×3 (08:04→21:41)
--- NOTE | 2017-02-18 19:20 | Nephrology Progress Note ---
Nephrology - PN: Subj Interval history: Patient is resting comfortably no acute changes. No fevers or chills. No shortness of breath or chest pain. Exam (PN)-Nephrology - Vital Signs Vital signs: Period Temp Pulse Resp BP Sys/Madsen Pulse Ox Last 24 Hr 97.0 F-97.8 F 61-67 16-20 90-156/52-64 86-94 - General Appearance General appearance: chronically ill, fatigue, frail EENT: ATNC Neck: supple Respiratory: clear Cardiology: no edema, regular rate, regular rhythm Gastrointestinal: normoactive bowel sounds Neurologic: alert and oriented x3 Psychiatric: mood/affect appropriate, cooperative - Lab 02/18/17 02:40 02/18/17 02:40 Most recent lab results Calcium 8.8 MG/DL (8.5-10.1) 02/18/17 02:40 Assessment and Plan (1) ESRD on hemodialysis Status: Chronic Current Visit: No (2) Ischemic cardiomyopathy Status: Chronic Current Visit: No (3) Diabetes Status: Chronic Current Visit: No Qualifiers: Diabetes mellitus type: type 2 Diabetes mellitus complication detail: with chronic kidney disease Chronic kidney disease stage: on chronic dialysis (4) Coronary artery disease Status: Chronic Current Visit: No Qualifiers: Coronary Disease-Associated Artery/Lesion type: [place] artery [place] vs. transplanted heart: [place] heart Associated angina: without angina Qualified Code(s): I25.10 - Atherosclerotic heart disease of [place] coronary artery without angina pectoris (5) Peripheral vascular disease Status: Chronic Current Visit: No
[2017-02-18] MEDS: ATORVASTATIN 10 MG TABLET PO SCH (21:41)
[2017-02-18] MEDS: GABAPENTIN 300 MG CAPSULE PO SCH (21:41)
[2017-02-19] MEDS: ASPIRIN EC 325 MG TABLET PO SCH (09:42)
[2017-02-19] MEDS: amLODIPine 10 MG TABLET PO SCH (09:42)
[2017-02-19] MEDS: PENTOXIFYLLINE 400 MG TABLET PO SCH ×3 (09:42→20:27)
[2017-02-19] MEDS: CALCIUM ACETATE 667 MG CAPSULE PO SCH ×3 (09:42→16:23)
[2017-02-19] MEDS: BRIMONIDINE 0.1% OPH SOLN 5 ML BOTTLE BOTH EYES SCH ×3 (09:42→20:27)
[2017-02-19] MEDS: CARVEDILOL 6.25 MG TABLET PO SCH ×2 (09:42→20:25)
[2017-02-19] MEDS: PANTOPRAZOLE 40 MG TABLET PO SCH (09:42)
--- NOTE | 2017-02-19 10:56 | Nephrology Progress Note ---
Nephrology - PN: Subj Interval history: Patient is resting comfortably no acute changes. No fevers or chills. No shortness of breath or chest pain. 2016. Patient is planning of back pain. No other complaints. Will do a Lidoderm patch to help with symptoms. Exam (PN)-Nephrology - Vital Signs Vital signs: Period Temp Pulse Resp BP Sys/Madsen Pulse Ox Last 24 Hr 96.9 F-98.3 F 58-85 16-20 81-97/43-56 89-97 - General Appearance General appearance: fatigue, frail EENT: ATNC (Stoma noted) Neck: supple Respiratory: clear Cardiology: no edema, regular rate, regular rhythm Gastrointestinal: normoactive bowel sounds, no tenderness Integumentary: no rash Neurologic: alert and oriented x3 Psychiatric: mood/affect appropriate, cooperative - Lab 02/18/17 02:40 02/18/17 02:40 Most recent lab results Calcium 8.8 MG/DL (8.5-10.1) 02/18/17 02:40 Assessment and Plan (1) ESRD on hemodialysis Status: Chronic Current Visit: No (2) Ischemic cardiomyopathy Status: Chronic Current Visit: No (3) Diabetes Status: Chronic Current Visit: No Qualifiers: Diabetes mellitus type: type 2 Diabetes mellitus complication detail: with chronic kidney disease Chronic kidney disease stage: on chronic dialysis (4) Coronary artery disease Status: Chronic Current Visit: No Qualifiers: Coronary Disease-Associated Artery/Lesion type: [place] artery [place] vs. transplanted heart: [place] heart Associated angina: without angina Qualified Code(s): I25.10 - Atherosclerotic heart disease of [place] coronary artery without angina pectoris (5) Peripheral vascular disease Status: Chronic Current Visit: No
--- NOTE | 2017-02-19 11:38 | Event Note ---
He feels well and has no complaints. He has no lower extremity pain. His dressing is dry. He has plans for tomorrow to have an interventional procedure to improve his arterial perfusion in his lower extremity.
[2017-02-19] MEDS: LIDOCAINE 5% PATCH TRANSDERM SCH (11:48)
[2017-02-19] MEDS: SODIUM HYPOCHLORITE 0.25% IRRIG 473 ML BOTTLE TOP SCH (14:25)
[2017-02-19] MEDS: BACITRACIN OINT 0.9 GM PACK TOP SCH (14:25)
[2017-02-19] MEDS: GABAPENTIN 300 MG CAPSULE PO SCH (20:27)
[2017-02-19] MEDS: ATORVASTATIN 10 MG TABLET PO SCH (20:27)
[2017-02-20] MEDS: CALCIUM ACETATE 667 MG CAPSULE PO SCH ×3 (07:51→17:35)
[2017-02-20] MEDS: BACITRACIN OINT 0.9 GM PACK TOP SCH (09:07)
[2017-02-20] MEDS: BRIMONIDINE 0.1% OPH SOLN 5 ML BOTTLE BOTH EYES SCH ×3 (09:07→21:00)
[2017-02-20] MEDS: CARVEDILOL 6.25 MG TABLET PO SCH ×2 (09:07→20:59)
[2017-02-20] MEDS: ASPIRIN EC 325 MG TABLET PO SCH (09:07)
[2017-02-20] MEDS: LIDOCAINE 5% PATCH TRANSDERM SCH (09:08)
[2017-02-20] MEDS: PENTOXIFYLLINE 400 MG TABLET PO SCH ×3 (09:08→20:59)
[2017-02-20] MEDS: PANTOPRAZOLE 40 MG TABLET PO SCH (09:08)
[2017-02-20] MEDS: amLODIPine 10 MG TABLET PO SCH (09:08)
[2017-02-20 11:08] LABS: INR 1.2; PT Patient Result 12.8 SECS
--- NOTE | 2017-02-20 12:27 | Dialysis Note ---
Dialysis Note - Dialysis Note Patient seen on hemodialysis, he is tolerating this well will continue his treatment unchanged.
[2017-02-20] MEDS: SODIUM HYPOCHLORITE 0.25% IRRIG 473 ML BOTTLE TOP SCH (12:46)
[2017-02-20] MEDS ORDERED: fentaNYL 100 MCG/2 ML VIAL IV ONE (13:51)
[2017-02-20] MEDS ORDERED: MIDAZOLAM 2 MG/2 ML VIAL IV ONE (13:51)
[2017-02-20] MEDS ORDERED: DIAZEPAM 5 MG TABLET PO ONE (13:51)
--- NOTE | 2017-02-20 13:56 | IR History and Physical Update ---
IR Pre-Procedure - History and Physical H&P was reviewed, the patient examined and there: are no changes in the patients condition since last H&P was completed. Reason for procedure:: 66 yo M w/ PAD, ESRD, s/p right BKA last year, now with nonhealing ulcers left foot. CTA inconclusive re: patency of left tibioperoneal system due to calcifications. Seen by Dr. Spencer last week, and agree with suggestion to pursue traditional angio today. - Dictation Physical: refer to H&P completed by admitting physician - Physical Exam Vital Signs: Last Vital Signs Temp 96.0 F L 02/20/17 07:06 Pulse 72 02/20/17 07:06 Resp 18 02/20/17 07:06 BP 131/68 02/20/17 07:06 Pulse Ox 91 L 02/20/17 07:06 - Sedation IR anesthesia plan for sedation: minimal ASA Class: III - Risks Risks: Procedures explained. Risks discussed include, but not limited to, the following:[ bleeding, infection, clot in leg] All questions answered. The following alternatives were discussed:[no ] Risks and benefits discussed with: patient Consent obtained from: patient Assessment and Plan - Time spent with patient Time spent with patient: Less than 30 minutes
[2017-02-20] MEDS ORDERED: HEPARIN/NACL 0.9% 2 UNITS/ML 2,000 ML IV ONE (14:42)
[2017-02-20] MEDS ORDERED: GLUCAGON 1 MG VIAL IM PRN (15:55)
[2017-02-20] MEDS ORDERED: DEXTROSE 50% 25 GM/50 ML SYRINGE IV PRN (15:55)
--- NOTE | 2017-02-20 15:57 | Post Interventional Procedure ---
Pre-op diagnosis: PAD, nonhealing ulcers left foot Post-op diagnosis: same Procedure: Abdominal aortogram w/ LLE runoff Contrast: Visi 320, 100 cc Flouroscopy: 1.6 min Radiologist: Oscar Baltazar Anesthesia: local Specimens: none sent Estimated blood loss: none Complications: none Condition: stable Description/Findings: See radiology report. Non reconstructable disease, left tibioperoneal occlusive disease, severe calcified atheromatous disease. Assessment and Plan - Time spent with patient Time spent with patient: Greater than 30 minutes
--- NOTE | 2017-02-20 16:33 | Nephrology Progress Note ---
Nephrology - PN: Subj Interval history: Mr. Víctor Anderson is seen in follow-up of his end-stage renal disease. He underwent dialysis earlier today and subsequently had a an arteriogram demonstrating non-reconstructable disease of his left leg. He is stable and in no distress, resting and breathing comfortably. We will continue to dialyze as an outpatient if he is discharged. Exam (PN)-Nephrology - Vital Signs Vital signs: Period Temp Pulse Resp BP Sys/Madsen Pulse Ox Last 24 Hr 96.0 F-97.8 F 65-92 14-20 92-131/42-96 90-97 - Lab 02/18/17 02:40 02/18/17 02:40 Most recent lab results Calcium 8.8 MG/DL (8.5-10.1) 02/18/17 02:40 Assessment and Plan (1) ESRD on hemodialysis Status: Chronic Current Visit: No (2) Diabetes Status: Chronic Current Visit: No Qualifiers: Diabetes mellitus type: type 2 Diabetes mellitus complication detail: with chronic kidney disease Chronic kidney disease stage: on chronic dialysis (3) Tobacco abuse Status: Chronic Current Visit: No (4) Peripheral vascular disease Problem details: known longstanding PVD with right BKA in the last year Status : Acute Current Visit: Yes
--- NOTE | 2017-02-20 17:20 | Interventional Radiology Rpt ---
IR angio abdominal w serial, US guide vascular access, IR angio extremity LT Indication: Peripheral arterial disease, end-stage renal failure, nonhealing ulcers left foot, prior RIGHT BKA. ABDOMINAL AORTOGRAM WITH LEFT LOWER EXTREMITY RUNOFF Comparison: 12/02/2015 Description: A formal timeout was performed. Maximum sterile barrier technique was instituted. The right groin pulse is not palpable. Ultrasound evaluation of the right groin was then performed showing densely calcified right common femoral artery. Under sonographic guidance, a micropuncture needle was advanced into the right common femoral artery. Captured sonographic image documents position of the needle. Needle was exchanged over a wire for a sheath. Flush catheter was then advanced into the suprarenal abdominal aorta. Abdominal aortogram was performed. Catheter was withdrawn to the bifurcation and a left lower extremity angiogram performed. Catheter and sheath were removed. Hemostasis was achieved with manual compression. Patient tolerated the procedure well. Contrast: Visipaque 320, 100 cc. Fluoroscopy: 1.6 minutes, 280 captured images. Medications: No sedation. Impression: 1. Since previous exam, right BKA now noted. 2. Extremely severe diffuse calcified atheromatous disease. 3. Extremely sluggish antegrade blood flow noted consistent with poor cardiac output. 4. Progressive narrowing of mid left SFA stenosis, now 50% mid thigh, previously 30% on 2016. Still, this is of little hemodynamic significance. 5. 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 There is some marginal reconstitution of the anterior tibialis and probably the posterior tibialis arteries at various levels of the left calf. This represents significant progression of disease since 12/02/2015. PROCEDURE INTERPRETED AT [facility] DEPARTMENT OF RADIOLOGY Final Report Signed by: Oscar Baltazar M.D.
[2017-02-20] MEDS: ATORVASTATIN 10 MG TABLET PO SCH (20:59)
[2017-02-20] MEDS: GABAPENTIN 300 MG CAPSULE PO SCH (20:59)
--- NOTE | 2017-02-21 07:33 | General Surgery Progress Note ---
Assessment and Plan - Time spent with patient Time spent with patient: Less than 30 minutes (1) Peripheral vascular disease Status: Acute Assessment and plan: Impression: Peripheral arterial disease of the left lower extremity with rest pain of the foot and ulcerations. Plan: Basic wound care We will consult Dr. Bird for evaluation to see if there is anything that might improve circulation. May be facing possible amputation. 02/21/2017. Patient was found with his head up in the leg hanging off the bed. He clearly is not resting well due to the pain in his foot. He indicates he continues to have pain in that leg at this time. I reviewed the arteriograms and the reports by Dr. Baltazar. Waiting for Dr. Bird's final evaluation but I feel like I know that it is going to be not unreconstructable process. The arteriogram did not indicate any real flow into the foot at this time. I feel that we are probably facing an amputation and I have briefly spoken to the patient and will talk to him further about this process. It looks like that this would be the only way that he can gain some relief to the progression of this process. BKA appears to be possible at this point. Current Visit: No (2) End stage renal disease on dialysis Problem details: Tolerated HD yesterday s complications. Routine HD Monday. UF to EDW as tolerated by hemodynamics. Status: Chronic Assessment and plan: Impression: Chronic renal failure dialysis patient Plan: Nephrology to manage Current Visit: No (3) Status post below knee amputation of right lower extremity Status: Chronic Assessment and plan: Impression status post right BKA amputation secondary to poor circulation Current Visit: No (4) Diabetes Status: Chronic Assessment and plan: Impression: Diabetes mellitus adult onset Medical manage Current Visit: No Qualifiers: Diabetes mellitus type: type 2 Diabetes mellitus complication detail: with chronic kidney disease Chronic kidney disease stage: on chronic dialysis (5) History of laryngectomy Status: Chronic Assessment and plan: Impression: Status post laryngectomy for cancer stable with no evidence of any recurrence Current Visit: No Subjective Patient reports: Present: still having pain, tolerating a regular diet, afebrile Exam - Constitutional Vitals: Period Temp Pulse Resp BP Sys/Madsen Pulse Ox Last 24 Hr 97.2 F-98.0 F 70-82 14-20 94-136/27-96 90-96 General appearance: mild distress - Head Head exam: Present: normal inspection - ENT ENT exam: Present: normal exam - Neck Neck exam: Present: normal inspection - Respiratory Respiratory exam: Present: rales - Cardiovascular Cardiovascular exam: Present: RRR - GI/Abdominal GI/Abdominal exam: Present: normal bowel sounds, soft - Extremities Exam Extremities exam: Present: other (Patient was found with the leg hanging off the bed at this time. Wounds are unchanged but clearly has wrist pain) - Back Exam Back exam: Present: normal inspection - Neurological Exam Neurological exam: Present: alert, oriented X3, CN II-XII intact - Skin Skin exam: Present: normal color, warm, dry Results - Labs CBC & BMP: 02/18/17 02:40 02/18/17 02:40 Lab Results: I have reviewed the past 24 hour labs Quality Measures - VTE Contraindication to Pharmacological VTE Prophylaxis: High Risk of Bleeding Contraindication to Mechanical VTE Prophylaxis: Ischemic Vascular Disease
[2017-02-21] MEDS: SODIUM CHLORIDE 0.45% 1,000 ML IV SCH ×2 (08:06→13:16)
--- NOTE | 2017-02-21 08:14 | Nephrology Progress Note ---
Nephrology - PN: Subj Interval history: Mr. Anderson is seen in follow-up of his end-stage renal disease. He dialyzed yesterday and will dialyze again tomorrow. Decision is pending regarding management of his peripheral vascular disease but he will probably need a left BKA. His chest is clear and he is in no distress. Breathing comfortably with his permanent trach. Exam (PN)-Nephrology - Vital Signs Vital signs: Period Temp Pulse Resp BP Sys/Madsen Pulse Ox Last 24 Hr 97.2 F-98.0 F 70-82 14-20 94-136/27-96 90-96 - Lab 02/18/17 02:40 02/18/17 02:40 Most recent lab results Calcium 8.8 MG/DL (8.5-10.1) 02/18/17 02:40 Assessment and Plan (1) ESRD on hemodialysis Status: Chronic Current Visit: No (2) Diabetes Status: Chronic Current Visit: No Qualifiers: Diabetes mellitus type: type 2 Diabetes mellitus complication detail: with chronic kidney disease Chronic kidney disease stage: on chronic dialysis (3) Tobacco abuse Status: Chronic Current Visit: No (4) Peripheral vascular disease Problem details: known longstanding PVD with right BKA in the last year Status : Acute Current Visit: Yes
[2017-02-21] MEDS: ASPIRIN EC 325 MG TABLET PO SCH (08:50)
[2017-02-21] MEDS: CALCIUM ACETATE 667 MG CAPSULE PO SCH ×3 (08:55→16:34)
[2017-02-21] MEDS: PENTOXIFYLLINE 400 MG TABLET PO SCH ×3 (08:56→20:33)
[2017-02-21] MEDS: CARVEDILOL 6.25 MG TABLET PO SCH ×2 (08:56→20:32)
[2017-02-21] MEDS: PANTOPRAZOLE 40 MG TABLET PO SCH (08:56)
[2017-02-21] MEDS: BACITRACIN OINT 0.9 GM PACK TOP SCH (08:57)
[2017-02-21] MEDS: amLODIPine 10 MG TABLET PO SCH (08:57)
[2017-02-21] MEDS: BRIMONIDINE 0.1% OPH SOLN 5 ML BOTTLE BOTH EYES SCH ×3 (08:57→20:33)
[2017-02-21] MEDS: LIDOCAINE 5% PATCH TRANSDERM SCH (08:57)
--- NOTE | 2017-02-21 11:14 | Event Note ---
I have reviewed Mr. Anderson is arteriograms from last year and just recently done yesterday I see no reasonable hope of revascularization. This is not surprising and consideration that he had atherectomy of the left anterior tibial artery back in 2011. I have just discussed this with him and recommend a left below-knee amputation and he states that he is interested in walking again. I think that it is reasonable for us to consider the below-knee amputation and bilateral prosthesis in physical therapy although I explained that he will require a lot of extra strength in effort to do so. He is interested in that I will discuss with Dr. Tovar but below-knee amputation can be done at his convenience.
[2017-02-21] MEDS: SODIUM HYPOCHLORITE 0.25% IRRIG 473 ML BOTTLE TOP SCH (12:45)
[2017-02-21] MEDS: CLOBETASOL 0.05% OINT 15 GM TUBE TOP SCH ×2 (12:45→20:33)
--- NOTE | 2017-02-21 19:17 | Event Note ---
02/21/[address] Heath has seen the patient and has discussed the situation with me and the patient indicating that he sees nothing that can be reconstructed this time. Indicated patient that because of his severe pain at the only option we have to help him get better would be an amputation. From the looks of his arteriograms I think it would be reasonable to do a below the knee amputation. He understands the risk and complications having undergone a right below the knee amputation in the past. I have discussed this with him he seems to understand the procedure was going to be done and he seems to be agreeable to moving along with surgery tomorrow.
[2017-02-21] MEDS: GABAPENTIN 300 MG CAPSULE PO SCH (20:32)
[2017-02-21] MEDS: ATORVASTATIN 10 MG TABLET PO SCH (20:32)
--- NOTE | 2017-02-21 20:36 | XRay Report ---
History: Preop amputation Date: 02/21/2017 Study: Chest x-ray AP portable Comparison exam: October 06, 2016 There is cardiomegaly and mild pulmonary vascular engorgement. There is hazy pulmonary edema in the mid to lower lungs bilaterally, right greater than left. There is mild right greater than left pleural effusion. Osseous structures are unchanged. The mediastinal contours are stable. There is moderate aortic arch calcification. Impression: Cardiomegaly and evidence of CHF with right greater than left bibasilar pulmonary edema and pleural effusion. PROCEDURE INTERPRETED AT [facility] DEPARTMENT OF RADIOLOGY Final Report Signed by: Dr. Reanna Castle
[2017-02-22 06:24] LABS: Basophils % 0.3 % (0.0-0.8); Eosinophils % 0.5 % (0.00-10.9); Hemoglobin 11.5 GM/DL (14.0-18.0); Immature Granulocytes % 0.3 %; Immature Granulocytes Absolute 0.02 #; Lymphocytes # 0.8 10*3/uL (1.4-4.0); Lymphocytes % 13.7 % (21.2-54.2); Mean Corpuscular HGB Conc 31.9 GM/DL (32-36); Mean Corpuscular Hemoglobin 31 PG (27-34); Mean Corpuscular Volume 98.1 FL (87-102); Mean Platelet Volume 11.6 FL (9.6-12.0); Monocytes # 0.9 10*3/uL (0.11-0.8); Monocytes % 15.7 % (1.7-12.7); Neutrophils # 4.2 10*3/uL (1.4-7.4); Neutrophils % 69.5 % (38.7-73.9); Red Blood Count 3.67 MC/CUMM (3.8-5.5); Red Cell Distribution Width 19.9 % (9.3-17.3)
[2017-02-22 06:27] LABS: Platelet Count 84 T/CUMM (130-400)
[2017-02-22 06:37] LABS: INR 1.2; Partial Thromboplastin Time 32.5 SECS (0-40)
--- NOTE | 2017-02-22 06:42 | EKG Report ---
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
[2017-02-22 06:55] LABS: Eosinophils 1 % (0-10); Lymphocytes 9 % (20-55); Platelet Estimate Decreased; Segmented Neutrophils 77 % (50-85); Total Cells Counted 100
[2017-02-22 06:56] LABS: Elliptocytes Few; Hypochromasia 1+
[2017-02-22] MEDS ORDERED: ceFAZolin 2,000 MG in PREMIX 1 EACH IV ONE (07:00)
[2017-02-22 07:16] LABS: Albumin 2.5 G/DL (3.4-5.0); Bilirubin,Total 0.7 MG/DL (0.2-1.0); Calcium 8.2 MG/DL (8.5-10.1)
[2017-02-22] MEDS: CARVEDILOL 6.25 MG TABLET PO SCH ×2 (08:00→20:54)
[2017-02-22] MEDS: amLODIPine 10 MG TABLET PO SCH (08:10)
[2017-02-22] MEDS ORDERED: SODIUM CHLORIDE 0.9% 250 ML IV SCH (08:30)
[2017-02-22] MEDS ORDERED: HYDROmorphone 2 MG/1 ML VIAL ONE (08:33)
[2017-02-22] MEDS ORDERED: HYDROmorphone 2 MG/1 ML VIAL IV ONE (08:57)
[2017-02-22] MEDS ORDERED: DEXTROSE 50% 25 GM/50 ML VIAL IV PRN (10:55)
[2017-02-22] MEDS ORDERED: CHLORHEXIDINE 4% SOLN 118 ML BOTTLE TOP ONE (11:04)
[2017-02-22] MEDS ORDERED: SKIN HEALING OINT (AQUAPHOR) 50 GM TUBE TOP PRN (11:04)
--- NOTE | 2017-02-22 11:14 | Operative Note ---
Date of procedure: 02/22/17 Pre-op diagnosis: Ischemic ulceration and pains left lower extremity Post-op diagnosis: same Procedure: Operative note: Preoperative diagnosis: Ischemic ulcerations with rest pain left foot Postoperative diagnosis: Same Procedure: Left BKA amputation Surgeon Dr. Tovar Chief Recordist Bethany Davison, BERNARDO HUGHESP Anesthesia was general endotracheal Brief history: 66-year-old male who has had his right leg removed below the knee or peripheral vascular disease. Comes in because of persistent ulcerations of the left foot and clear rest pain of this leg. We restarted wound care on them and then we got some vascular studies and [employer] management consultant the vascular surgeon Dr. Heath see him. Follow-up studies indicated nothing that could be reconstructed and Dr. Heath felt like that there is nothing more that can be done to this leg. Because of his severe rest pain he was ready to go ahead and get this leg also that he can get some rest. Procedure: With patient supine position prepped and draped in sterile fashion timeout and antibiotics completed we approach this area of the left lower extremity. I measured an area from the joint to about 16 cm onto the tibia. We then created a area for a posterior long posterior flap to be brought up over the lip the bone at this time creating this lytic area on the leg. Once we had it drawn out and I took a knife made incision through skin subtenons tissue at the level 16 cm carried it down 6 cm on either side to the fibula. We then extended the skin down to the posterior area of the incision and a long posterior flap and then went through this posterior flap of skin subtenons tissue with a knife and through the tendons posteriorly at that level. At that point I then made an incision through the fascia and muscle on the lateral aspect of the leg between the tibia and fibula carefully dissected down to identify the vessels are tied them off with 2-0 Ethibond and transfix of 2-0 Ethibond. Found the nerve pulled it down tightly and divided it after tying it with a 2-0 Ethibond. We then incised the membrane between the tibia and fibula. I then excised the muscles on the medial aspect of the tibia at this point down to the level of the bone. I then used a periosteal elevator to elevate the periosteum on the tibia and in the fibula at this point. I then took oscillating saw approximately 2 inches above the incision site and divided the fibula and then the tibia creating an angled upper part of the tibia and smoothing off the edges. Once we had those bones divided and I took the amputation night underneath the fibula and we cut this off creating a long posterior flap. Once posterior flap was completed we oversewed the vessels with 2-0 Ethibond suture and transfix of a 2-0 Ethibond. We identified the nerve pulled it down for 2 Ethibond he cut it sharply and allowed to retract. We then washed out the wound itself to get a good clean wound use light cauterization of some smaller vessels. Once we had everything under good control at this point time then we closed some muscle and fascia over the tibia later drain underneath this and closed the muscles of bring the flap closing it with 2-0 Vicryl suture. We then closed subtenons tissue with 3-0 Vicryl and with that completed we closed the skin with unerupted of 3-0 nylon along with skin clips own. Bulky dressing was then applied and the patient taken to recovery room. Estimated blood loss 30-40 cc sponge count correct Drains one #7 Juvencio-Quiles Complications none Condition stable satisfactory Anesthesia: MIRTHA Surgeon / Physician: Yogi Tovar Chief Recordist: Bethany Davison Estimated blood loss: other (30 cc) Specimens: other (Lower leg and foot) Condition: stable Disposition: floor Results - Labs CBC & BMP: 02/22/17 05:38 02/22/17 05:38 Discharge Plan - Discharge Medications No Action Omeprazole [Prilosec] 20 mg PO DAILY Carvedilol 6.25 mg PO BID amLODIPine [Norvasc] 10 mg PO DAILY Calcium Acetate [Phoslo] 667 mg PO WITH SNACKS Gabapentin Cap/Tab [Neurontin Cap/Tab] 300 mg PO BEDTIME Brimonidine 0.1% Oph Soln [Alphagan P 0.1% Oph Soln] 1 drop BOTH EYES TID Aspirin EC Tab 325 mg PO DAILY Atorvastatin [Lipitor] 10 mg PO BEDTIME Calcium Acetate [Phoslo] 2,001 mg PO TID W/MEALS HYDROcodone/ACETAMIN 10-325 [Windsor 10-325] 7.5 tablet PO Q6HR - Follow Up or Referral - Forms/Instructions
[2017-02-22] MEDS ORDERED: DEXTROSE 50% 25 GM/50 ML SYRINGE IV PRN (11:30)
[2017-02-22] MEDS: PHENYLEPHRINE DRIP 40 MG/250 ML PREMIX IV SCH ×4 (11:45→23:22)
[2017-02-22] MEDS ORDERED: PHENYLEPHRINE DRIP 40 MG/250 ML PREMIX IV ONE (11:52)
[2017-02-22] MEDS: CALCIUM ACETATE 667 MG CAPSULE PO SCH ×3 (12:58→17:13)
[2017-02-22] MEDS: BRIMONIDINE 0.1% OPH SOLN 5 ML BOTTLE BOTH EYES SCH ×2 (12:58→17:12)
[2017-02-22] MEDS: BACITRACIN OINT 0.9 GM PACK TOP SCH (12:58)
[2017-02-22] MEDS: CLOBETASOL 0.05% OINT 15 GM TUBE TOP SCH (12:58)
[2017-02-22] MEDS: PENTOXIFYLLINE 400 MG TABLET PO SCH ×3 (12:58→20:46)
[2017-02-22] MEDS: SODIUM HYPOCHLORITE 0.25% IRRIG 473 ML BOTTLE TOP SCH (12:59)
--- NOTE | 2017-02-22 13:12 | Nephrology Progress Note ---
Nephrology - PN: Subj Interval history: Mr. Víctor Anderson is seen in follow-up of his end-stage renal disease. He underwent amputation of his leg today and is seen in the recovery room. He still somewhat sleepy but is breathing quietly with a trach collar and has a clear chest with a regular heart rhythm. Chest x-ray demonstrated increased volume but he is not short of breath and oxygenation is good. Potassium today is 5.0. Blood pressure is in the range 100 systolic on Lazarus-Synephrine. He runs a low blood pressure most of the time in the 90 systolic range so I doubt that he is going to have much difficulty coming off the Lazarus-Synephrine as long as it is realize that his usual blood pressure is low. We will plan to dialyze tomorrow so that we can avoid heparinization for today will try to remove volume as tolerated tomorrow with dialysis Exam (PN)-Nephrology - Vital Signs Vital signs: Period Temp Pulse Resp BP Sys/Madsen Pulse Ox Last 24 Hr 97.0 F-98.2 F 67-105 12-20 70-134/19-71 88-93 - Lab 02/22/17 05:38 02/22/17 05:38 Most recent lab results Calcium 8.2 MG/DL (8.5-10.1) L 02/22/17 05:38 Assessment and Plan (1) ESRD on hemodialysis Status: Chronic Current Visit: No (2) Diabetes Status: Chronic Current Visit: No Qualifiers: Diabetes mellitus type: type 2 Diabetes mellitus complication detail: with chronic kidney disease Chronic kidney disease stage: on chronic dialysis (3) Tobacco abuse Status: Chronic Current Visit: No (4) Peripheral vascular disease Problem details: known longstanding PVD with right BKA in the last year Status : Acute Current Visit: Yes
--- NOTE | 2017-02-22 13:44 | Anesthesia Post-Op ---
Anesthesia Post OP - Post Ansesthetic Evaluation Patient seen in post op: Yes Resp: within normal limits CV: within normal limits Mental: within normal limits Temp: within normal limits [id number]: within normal limits Nausea and Vomiting: within normal limits Pain: within normal limits
[2017-02-22 14:39] LABS: Hematocrit 36.8 VOL% (42.0-52.0); Hemoglobin 11.7 GM/DL (14.0-18.0)
[2017-02-22] MEDS: ASPIRIN EC 325 MG TABLET PO SCH (14:52)
[2017-02-22] MEDS: PANTOPRAZOLE 40 MG TABLET PO SCH (14:52)
[2017-02-22] MEDS: LIDOCAINE 5% PATCH TRANSDERM SCH ×2 (14:52→20:51)
[2017-02-22] MEDS: INSULIN REGULAR 100 UNIT/ML SUBCUT SCH ×3 (14:53→20:54)
[2017-02-22] MEDS: HYDROmorphone 2 MG/1 ML VIAL IV PRN (16:27)
[2017-02-22] MEDS: SODIUM CHLORIDE 0.45% 1,000 ML IV SCH (17:45)
[2017-02-22] MEDS: ceFAZolin 2,000 MG in PREMIX 1 EACH IV SCH (17:46)
[2017-02-22 18:02] LABS: Hematocrit 37.7 VOL% (42.0-52.0); Hemoglobin 12.2 GM/DL (14.0-18.0)
[2017-02-22] MEDS: ATORVASTATIN 10 MG TABLET PO SCH (20:45)
[2017-02-22] MEDS: GABAPENTIN 300 MG CAPSULE PO SCH (20:48)
[2017-02-23] MEDS: HYDROmorphone 2 MG/1 ML VIAL IV PRN ×2 (00:42→17:35)
[2017-02-23] MEDS: ceFAZolin 2,000 MG in PREMIX 1 EACH IV SCH ×3 (01:11→16:20)
[2017-02-23] MEDS: BRIMONIDINE 0.1% OPH SOLN 5 ML BOTTLE BOTH EYES SCH ×4 (01:11→22:09)
[2017-02-23] MEDS: PHENYLEPHRINE DRIP 40 MG/250 ML PREMIX IV SCH ×2 (02:55→11:59)
[2017-02-23] MEDS: CLOBETASOL 0.05% OINT 15 GM TUBE TOP SCH ×3 (03:00→22:10)
[2017-02-23 06:37] LABS: Basophils % 0.3 % (0.0-0.8); Eosinophils % 0.1 % (0.00-10.9); Hematocrit 36.7 VOL% (42.0-52.0); Hemoglobin 11.6 GM/DL (14.0-18.0); Immature Granulocytes % 0.7 %; Immature Granulocytes Absolute 0.07 #; Lymphocytes # 0.5 10*3/uL (1.4-4.0); Lymphocytes % 5.4 % (21.2-54.2); Mean Corpuscular HGB Conc 31.6 GM/DL (32-36); Mean Corpuscular Hemoglobin 31 PG (27-34); Mean Corpuscular Volume 97.9 FL (87-102); Mean Platelet Volume 11.7 FL (9.6-12.0); Monocytes # 1.5 10*3/uL (0.11-0.8); Monocytes % 15.1 % (1.7-12.7); NRBC # 0.05 10*3/uL; Neutrophils # 7.9 10*3/uL (1.4-7.4); Neutrophils % 78.4 % (38.7-73.9); Red Blood Count 3.75 MC/CUMM (3.8-5.5); Red Cell Distribution Width 19.3 % (9.3-17.3)
[2017-02-23 06:48] LABS: Platelet Count 75 T/CUMM (130-400)
[2017-02-23 07:00] LABS: Elliptocytes Few; Giant Platelets Few; Hypochromasia 1+; Platelet Estimate Decreased
[2017-02-23 07:05] LABS: Calcium 7.9 MG/DL (8.5-10.1); Osmolality,Calculated 281.8 MOS/KG (273-304)
[2017-02-23] MEDS: INSULIN REGULAR 100 UNIT/ML SUBCUT SCH ×4 (07:54→22:10)
[2017-02-23] MEDS: PANTOPRAZOLE 40 MG TABLET PO SCH (08:00)
[2017-02-23] MEDS: CALCIUM ACETATE 667 MG CAPSULE PO SCH ×3 (08:00→16:21)
[2017-02-23] MEDS: ASPIRIN EC 325 MG TABLET PO SCH (08:01)
[2017-02-23] MEDS: BACITRACIN OINT 0.9 GM PACK TOP SCH (08:02)
[2017-02-23] MEDS: CARVEDILOL 6.25 MG TABLET PO SCH ×2 (08:02→22:09)
[2017-02-23] MEDS: PENTOXIFYLLINE 400 MG TABLET PO SCH ×3 (08:02→22:10)
--- NOTE | 2017-02-23 08:02 | General Surgery Progress Note ---
Assessment and Plan (1) Peripheral vascular disease Status: Acute Assessment and plan: 02/23/2017. The patient is stable postop left BKA. Lazarus is being weaned, and vital signs and EKG are stable at this time although he does have hyperkalemia, but is scheduled for hemodialysis this morning. I have spoken with his nurse, who will make Dr. Mckeon aware that his K is 6 and of fasciculations, and hopefully we can dialyze him sooner rather than later. If he remains stable, he might be ready to transfer back to the floor after HD. 02/17/2017. Ischemic peripheral vascular disease, progressive with left lower extremity ulcerations. Dr. Heath's consult was reviewed. We appreciate his willingness to consult with interventional radiology for consideration of formal arteriogram to see if there are any maneuvers that can increase blood flow to this patient with severe rest pain. Current Visit: No (2) Nausea & vomiting Status: Acute Assessment and plan: 02/17/2017. No complaint of nausea and vomiting. We will go ahead and get an abdominal film. We will treat this symptomatically with Zofran. It might be related to his medications or gastroparesis; another etiology could be constipation, as he does use quite a lot of narcotics for his lower extremity rest pain. The plain films show no evidence of obstruction and a good deal of stool in the colon, we will plan to treat this with laxatives. Current Visit: Yes Subjective Patient reports: Present: other (Patient is awake, and complaining of pain to his left BK stump.) Exam - Constitutional Vitals: Period Temp Pulse Resp BP Sys/Madsen Pulse Ox Last 24 Hr 96.7 F-98.2 F 9-76 9- 70-144/19-91 88-97 General appearance: mild distress, other (He is drawing his stump inward; there there fasciculation in the posterior thigh, where the muscle belly is tight in this region. There is no unusual swelling and this appears to be in spasm, and relaxes when the patient was repositioned and stump elevated.) - Respiratory Respiratory exam: Present: rhonchi - Cardiovascular Cardiovascular exam: Present: RRR, other (Vital signs are stable; no EKG symptoms are observed. Dyspnea is being weaned and his blood pressure low 100s) - GI/Abdominal GI/Abdominal exam: Present: hypoactive bowel sounds - Extremities Exam Extremities exam: Present: other (Left BK stump is clean without strikethrough drainage. There is minimal bloody drainage in the K[place]ER[place] reservoir. See physical exam above; initially he had muscle spasm with fasciculation of the posterior left thigh; we were able to reposition him and get this more comfortable with relief of the spasm.) Results - Labs CBC & BMP: 02/23/17 05:31 02/23/17 05:31 Lab Results: I have reviewed the past 24 hour labs (H&H is stable postop; hyperkalemia; he is for hemodialysis today) Quality Measures - VTE Contraindication to Pharmacological VTE Prophylaxis: High Risk of Bleeding Contraindication to Mechanical VTE Prophylaxis: Ischemic Vascular Disease
[2017-02-23] MEDS: LIDOCAINE 5% PATCH TRANSDERM SCH (08:03)
[2017-02-23] MEDS: amLODIPine 10 MG TABLET PO SCH (08:03)
--- NOTE | 2017-02-23 08:37 | Nephrology Progress Note ---
Nephrology - PN: Subj Interval history: Mr. Anderson is seen in follow-up of his end-stage renal disease. His potassium today is 6.0. He is off Lazarus-Synephrine with a pressure 110 systolic. He has crackles at both bases and is fairly well oxygenated with a trach collar. Will dialyze today and remove fluid as tolerated. He does have some myoclonic jerks but is not uremic his last dialysis was 02-20. He is now status post left leg amputation Exam (PN)-Nephrology - Vital Signs Vital signs: Period Temp Pulse Resp BP Sys/Madsen Pulse Ox Last 24 Hr 96.7 F-98.2 F 9-76 9-25 70-144/19-91 88-97 - Lab 02/23/17 05:31 02/23/17 05:31 Most recent lab results Calcium 7.9 MG/DL (8.5-10.1) L 02/23/17 05:31 Assessment and Plan (1) ESRD on hemodialysis Status: Chronic Current Visit: No (2) Diabetes Status: Chronic Current Visit: No Qualifiers: Diabetes mellitus type: type 2 Diabetes mellitus complication detail: with chronic kidney disease Chronic kidney disease stage: on chronic dialysis (3) Tobacco abuse Status: Chronic Current Visit: No (4) Peripheral vascular disease Problem details: known longstanding PVD with right BKA in the last year Status : Acute Current Visit: Yes
[2017-02-23] MEDS: ZINC OXIDE PASTE 113 GM TUBE TOP SCH ×2 (11:15→22:10)
--- NOTE | 2017-02-23 11:37 | Dialysis Note ---
Dialysis Note - Dialysis Note Mr. Anderson is seen during his hemodialysis. His blood pressure is 97 systolic and is tolerating dialysis fairly well he is awake. Our plan is to continue with his usual scheduled hemodialysis. He should be fine to be managed on the floor
[2017-02-23] MEDS: SODIUM CHLORIDE 0.45% 1,000 ML IV SCH (16:11)
[2017-02-23] MEDS: ATORVASTATIN 10 MG TABLET PO SCH (22:09)
[2017-02-23] MEDS: GABAPENTIN 300 MG CAPSULE PO SCH (22:09)
[2017-02-24] MEDS: ceFAZolin 2,000 MG in PREMIX 1 EACH IV SCH ×2 (01:39→09:29)
[2017-02-24] MEDS: INSULIN REGULAR 100 UNIT/ML SUBCUT SCH ×4 (08:03→20:40)
[2017-02-24] MEDS ORDERED: ACETAMINOPHEN 325 MG TABLET PO PRN (08:44)
--- NOTE | 2017-02-24 08:50 | General Surgery Progress Note ---
Assessment and Plan (1) Peripheral vascular disease Status: Acute Assessment and plan: Impression: Peripheral arterial disease of the left lower extremity with rest pain of the foot and ulcerations. Plan: Basic wound care We will consult Dr. Bird for evaluation to see if there is anything that might improve circulation. May be facing possible amputation. 02/21/2017. Patient was found with his head up in the leg hanging off the bed. He clearly is not resting well due to the pain in his foot. He indicates he continues to have pain in that leg at this time. I reviewed the arteriograms and the reports by Dr. Baltazar. Waiting for Dr. Bird's final evaluation but I feel like I know that it is going to be not unreconstructable process. The arteriogram did not indicate any real flow into the foot at this time. I feel that we are probably facing an amputation and I have briefly spoken to the patient and will talk to him further about this process. It looks like that this would be the only way that he can gain some relief to the progression of this process. BKA appears to be possible at this point. Current Visit: No (2) End stage renal disease on dialysis Problem details: Tolerated HD yesterday s complications. Routine HD Monday. UF to EDW as tolerated by hemodynamics. Status: Chronic Assessment and plan: Impression: Chronic renal failure dialysis patient Plan: Nephrology to manage Current Visit: No (3) Status post below knee amputation of right lower extremity Status: Chronic Assessment and plan: Impression status post right BKA amputation secondary to poor circulation Current Visit: No (4) Diabetes Status: Chronic Assessment and plan: Impression: Diabetes mellitus adult onset Medical manage Current Visit: No Qualifiers: Diabetes mellitus type: type 2 Diabetes mellitus complication detail: with chronic kidney disease Chronic kidney disease stage: on chronic dialysis (5) History of laryngectomy Status: Chronic Assessment and plan: Impression: Status post laryngectomy for cancer stable with no evidence of any recurrence Current Visit: No (6) S/P BKA (below knee amputation) unilateral Status: Acute Assessment and plan: 02/24/2017. Patient status post left BKA amputation. Generally doing extremely well with moderate discomfort and some pain. Dressing change today is clean and dry with no sign of any infection and the drain was removed. Will start working on getting him a temporary prosthesis on the right lower extremity and to try to get him to rehab for some therapy to get him more functional. Will maintain present treatment at this time change his dressing again on Monday Current Visit: Yes Subjective Patient reports: Present: no new complaints, feels better, pain is less, tolerating a regular diet, afebrile Exam - Constitutional Vitals: Period Temp Pulse Resp BP Sys/Madsen Pulse Ox Last 24 Hr 97 F-98.2 F 67-86 10-20 91-138/36-75 89-100 General appearance: mild distress - Head Head exam: Present: normal inspection - ENT ENT exam: Present: normal exam - Neck Neck exam: Present: normal inspection - Respiratory Respiratory exam: Present: clear to auscultation bilaterally, rales - Cardiovascular Cardiovascular exam: Present: RRR - GI/Abdominal GI/Abdominal exam: Present: hypoactive bowel sounds, soft - Extremities Exam Extremities exam: Present: other (Dressings changed on the left BKA and the wound looks good and viable with no sign of any ischemic changes present. Drain removed) - Back Exam Back exam: Present: normal inspection - Neurological Exam Neurological exam: Present: alert, oriented X3, CN II-XII intact - Skin Skin exam: Present: normal color, warm, dry Results - Labs CBC & BMP: 02/23/17 05:31 02/23/17 05:31 Lab Results: I have reviewed the past 24 hour labs Quality Measures - VTE Contraindication to Pharmacological VTE Prophylaxis: High Risk of Bleeding Contraindication to Mechanical VTE Prophylaxis: Ischemic Vascular Disease
[2017-02-24] MEDS: amLODIPine 10 MG TABLET PO SCH (09:28)
[2017-02-24] MEDS: BRIMONIDINE 0.1% OPH SOLN 5 ML BOTTLE BOTH EYES SCH ×3 (09:28→20:46)
[2017-02-24] MEDS: CALCIUM ACETATE 667 MG CAPSULE PO SCH ×3 (09:28→17:33)
[2017-02-24] MEDS: ZINC OXIDE PASTE 113 GM TUBE TOP SCH ×2 (09:28→20:46)
[2017-02-24] MEDS: CARVEDILOL 6.25 MG TABLET PO SCH ×2 (09:29→20:46)
[2017-02-24] MEDS: PENTOXIFYLLINE 400 MG TABLET PO SCH ×3 (09:29→20:46)
[2017-02-24] MEDS: ASPIRIN EC 325 MG TABLET PO SCH (09:29)
[2017-02-24] MEDS: CETIRIZINE 10 MG TABLET PO SCH (09:29)
[2017-02-24] MEDS: PANTOPRAZOLE 40 MG TABLET PO SCH (09:29)
[2017-02-24] MEDS: LIDOCAINE 5% PATCH TRANSDERM SCH (09:30)
[2017-02-24] MEDS: CLOBETASOL 0.05% OINT 15 GM TUBE TOP SCH ×2 (09:30→20:51)
--- NOTE | 2017-02-24 11:17 | Pathology Report from [facility] ---
[facility] [place] ACCESSION # : [id number] PATIENT NAME : Víctor Anderson ORDERING DR : ZOFIA JAMES MD CLINICAL HX: Peripheral vascular disease POST-OP DX: Same SPECIMEN INFO: Left lower leg GROSS DESCRIPTION: Received fresh labeled with the patients name VÍCTOR ANDERSON and consists of a 32.0 cm left leg below the knee amputation. The skin is brown and hairless with a few scattered ulcerations noted involving the great toe and the lateral side of the foot measuring up to 1.0 cm. The posterior tibial artery is focally arteriosclerotic and calcified. Sections submitted: A hobbies and crafts sales representative ulcers, B artery following decalcification. DIAGNOSIS FOR VÍCTOR ANDERSON: LEFT [id number] AMPUTATION: Skin with ulceration and underlying fibrinopurulent debris, consistent with gangrene. Severe arterial atherosclerosis. COLLECTED DATE: 02/22/2017 [facility] [place] REPORT DATE: 02/24/2017 ELECTRONICALLY SIGNED BY: Maira Tong M.D. 02/24/2017 - 6:43:18 MTDD
--- NOTE | 2017-02-24 13:43 | Dialysis Note ---
Dialysis Note - Dialysis Note Mr. Anderson is seen during his hemodialysis. He is tolerating his dialysis well still wearing a trach collar he is in no distress.
--- NOTE | 2017-02-24 18:17 | Pathology Report from [facility] ---
[facility] [place] ACCESSION # : [id number] PATIENT NAME : Víctor Anderson ORDERING DR : ZOFIA JAMES MD CLINICAL HX: Peripheral vascular disease POST-OP DX: Same SPECIMEN INFO: Left lower leg GROSS DESCRIPTION: Received fresh labeled with the patients name VÍCTOR ANDERSON and consists of a 32.0 cm left leg below the knee amputation. The skin is brown and hairless with a few scattered ulcerations noted involving the great toe and the lateral side of the foot measuring up to 1.0 cm. The posterior tibial artery is focally arteriosclerotic and calcified. Sections submitted: A associate sales representative ulcers, B artery following decalcification. DIAGNOSIS FOR VÍCTOR ANDERSON: LEFT [id number] AMPUTATION: Skin with ulceration and underlying fibrinopurulent debris, consistent with gangrene. Severe arterial atherosclerosis. COLLECTED DATE: 02/22/2017 [facility] [place] REPORT DATE: 02/24/2017 ELECTRONICALLY SIGNED BY: Maira Tong M.D. 02/24/2017 - 6:43:18 MTDD
[2017-02-24] MEDS: ATORVASTATIN 10 MG TABLET PO SCH (20:46)
[2017-02-24] MEDS: GABAPENTIN 300 MG CAPSULE PO SCH (20:46)
[2017-02-25] MEDS: INSULIN REGULAR 100 UNIT/ML SUBCUT SCH ×4 (09:09→21:24)
[2017-02-25] MEDS: CALCIUM ACETATE 667 MG CAPSULE PO SCH ×3 (09:10→17:55)
[2017-02-25] MEDS: CETIRIZINE 10 MG TABLET PO SCH (09:11)
[2017-02-25] MEDS: PENTOXIFYLLINE 400 MG TABLET PO SCH ×3 (09:11→21:22)
[2017-02-25] MEDS: BRIMONIDINE 0.1% OPH SOLN 5 ML BOTTLE BOTH EYES SCH ×3 (09:11→21:23)
[2017-02-25] MEDS: PANTOPRAZOLE 40 MG TABLET PO SCH (09:11)
[2017-02-25] MEDS: ASPIRIN EC 325 MG TABLET PO SCH (09:11)
[2017-02-25] MEDS: CARVEDILOL 6.25 MG TABLET PO SCH (09:11)
[2017-02-25] MEDS: ZINC OXIDE PASTE 113 GM TUBE TOP SCH ×2 (09:12→21:23)
[2017-02-25] MEDS: CLOBETASOL 0.05% OINT 15 GM TUBE TOP SCH ×2 (09:12→21:24)
[2017-02-25] MEDS: LIDOCAINE 5% PATCH TRANSDERM SCH ×2 (09:12→09:17)
[2017-02-25] MEDS: amLODIPine 10 MG TABLET PO SCH (09:15)
--- NOTE | 2017-02-25 11:44 | Event Note ---
Patient is recovering well from left below-knee amputation. Dressing is clean and dry. Continue current care.
--- NOTE | 2017-02-25 12:00 | Nephrology Progress Note ---
Nephrology - PN: Subj Interval history: Mr. Anderson is seen in follow-up of his end-stage renal disease. He underwent amputation of his leg below the knee earlier this week. He is doing well and has chronic hypotension. He has been on some antihypertensive drugs which we will stop. Overall he is doing well remains alert has a clear chest. His chronic trach is patent Exam (PN)-Nephrology - Vital Signs Vital signs: Period Temp Pulse Resp BP Sys/Madsen Pulse Ox Last 24 Hr 97.4 F-98.1 F 68-78 16-20 84-125/55-79 93-98 - Lab 02/23/17 05:31 02/23/17 05:31 Most recent lab results Calcium 7.9 MG/DL (8.5-10.1) L 02/23/17 05:31 Assessment and Plan (1) ESRD on hemodialysis Status: Chronic Current Visit: No (2) Diabetes Status: Chronic Current Visit: No Qualifiers: Diabetes mellitus type: type 2 Diabetes mellitus complication detail: with chronic kidney disease Chronic kidney disease stage: on chronic dialysis (3) Tobacco abuse Status: Chronic Current Visit: No (4) Peripheral vascular disease Problem details: known longstanding PVD with right BKA in the last year Status : Acute Current Visit: Yes
[2017-02-25] MEDS: GABAPENTIN 300 MG CAPSULE PO SCH (21:22)
[2017-02-25] MEDS: ATORVASTATIN 10 MG TABLET PO SCH (21:23)
[2017-02-26] MEDS: INSULIN REGULAR 100 UNIT/ML SUBCUT SCH ×4 (08:55→20:55)
[2017-02-26] MEDS: CETIRIZINE 10 MG TABLET PO SCH (08:56)
[2017-02-26] MEDS: ASPIRIN EC 325 MG TABLET PO SCH (08:56)
[2017-02-26] MEDS: PANTOPRAZOLE 40 MG TABLET PO SCH (08:56)
[2017-02-26] MEDS: PENTOXIFYLLINE 400 MG TABLET PO SCH ×3 (08:56→20:56)
[2017-02-26] MEDS: CALCIUM ACETATE 667 MG CAPSULE PO SCH ×4 (08:56→16:44)
[2017-02-26] MEDS: CLOBETASOL 0.05% OINT 15 GM TUBE TOP SCH ×2 (08:57→20:57)
[2017-02-26] MEDS: BRIMONIDINE 0.1% OPH SOLN 5 ML BOTTLE BOTH EYES SCH ×3 (08:57→20:56)
[2017-02-26] MEDS: ZINC OXIDE PASTE 113 GM TUBE TOP SCH ×2 (08:57→20:56)
[2017-02-26] MEDS: LIDOCAINE 5% PATCH TRANSDERM SCH (08:57)
--- NOTE | 2017-02-26 09:38 | Nephrology Progress Note ---
Nephrology - PN: Subj Interval history: Mr. Anderson is seen in follow-up of his end-stage renal disease and recent left below-knee amputation. He is doing well and is without complaints today his breathing is unlabored no changes are made. Exam (PN)-Nephrology - Vital Signs Vital signs: Period Temp Pulse Resp BP Sys/Madsen Pulse Ox Last 24 Hr 97.3 F-98.0 F 63-69 16-20 84-116/53-71 95-100 - Lab 02/23/17 05:31 02/23/17 05:31 Most recent lab results Calcium 7.9 MG/DL (8.5-10.1) L 02/23/17 05:31 Assessment and Plan (1) ESRD on hemodialysis Status: Chronic Current Visit: No (2) Diabetes Status: Chronic Current Visit: No Qualifiers: Diabetes mellitus type: type 2 Diabetes mellitus complication detail: with chronic kidney disease Chronic kidney disease stage: on chronic dialysis (3) Tobacco abuse Status: Chronic Current Visit: No (4) Peripheral vascular disease Problem details: known longstanding PVD with right BKA in the last year Status : Acute Current Visit: Yes
--- NOTE | 2017-02-26 11:32 | Event Note ---
This patient is recovering from a left below-knee amputation. He is doing well and his dressing is clean. Continue current care.
[2017-02-26] MEDS: GABAPENTIN 300 MG CAPSULE PO SCH (20:56)
[2017-02-26] MEDS: ATORVASTATIN 10 MG TABLET PO SCH (20:56)
[2017-02-27 06:40] LABS: Basophils % 0.4 % (0.0-0.8); Eosinophils % 0.6 % (0.00-10.9); Hematocrit 32.4 VOL% (42.0-52.0); Hemoglobin 10.6 GM/DL (14.0-18.0); Immature Granulocytes % 0.6 %; Immature Granulocytes Absolute 0.04 #; Lymphocytes # 0.7 10*3/uL (1.4-4.0); Lymphocytes % 10.5 % (21.2-54.2); Mean Corpuscular HGB Conc 32.7 GM/DL (32-36); Mean Corpuscular Hemoglobin 31 PG (27-34); Mean Corpuscular Volume 95.3 FL (87-102); Mean Platelet Volume 11.5 FL (9.6-12.0); Monocytes # 0.9 10*3/uL (0.11-0.8); Monocytes % 13.2 % (1.7-12.7); Neutrophils # 5.1 10*3/uL (1.4-7.4); Neutrophils % 74.7 % (38.7-73.9); White Blood Count 6.9 T/CUMM (4-12)
[2017-02-27 06:45] LABS: Platelet Count 74 T/CUMM (130-400)
[2017-02-27 07:15] LABS: Calcium 8.2 MG/DL (8.5-10.1); Magnesium 2.4 MG/DL (1.8-2.4); Osmolality,Calculated 281.8 MOS/KG (273-304); Potassium 5.2 MMOL/L (3.5-5.1)
[2017-02-27 07:29] LABS: Burr Cells Slight; Elliptocytes Few; Hypochromasia 1+; Platelet Estimate Decreased
--- NOTE | 2017-02-27 08:09 | General Surgery Progress Note ---
Assessment and Plan (1) Peripheral vascular disease Status: Acute Assessment and plan: Impression: Peripheral arterial disease of the left lower extremity with rest pain of the foot and ulcerations. Plan: Basic wound care We will consult Dr. Bird for evaluation to see if there is anything that might improve circulation. May be facing possible amputation. 02/21/2017. Patient was found with his head up in the leg hanging off the bed. He clearly is not resting well due to the pain in his foot. He indicates he continues to have pain in that leg at this time. I reviewed the arteriograms and the reports by Dr. Baltazar. Waiting for Dr. Bird's final evaluation but I feel like I know that it is going to be not unreconstructable process. The arteriogram did not indicate any real flow into the foot at this time. I feel that we are probably facing an amputation and I have briefly spoken to the patient and will talk to him further about this process. It looks like that this would be the only way that he can gain some relief to the progression of this process. BKA appears to be possible at this point. Current Visit: No (2) End stage renal disease on dialysis Problem details: Tolerated HD yesterday s complications. Routine HD Monday. UF to EDW as tolerated by hemodynamics. Status: Chronic Assessment and plan: Impression: Chronic renal failure dialysis patient Plan: Nephrology to manage Current Visit: No (3) Status post below knee amputation of right lower extremity Status: Chronic Assessment and plan: Impression status post right BKA amputation secondary to poor circulation Current Visit: No (4) Diabetes Status: Chronic Assessment and plan: Impression: Diabetes mellitus adult onset Medical manage Current Visit: No Qualifiers: Diabetes mellitus type: type 2 Diabetes mellitus complication detail: with chronic kidney disease Chronic kidney disease stage: on chronic dialysis (5) History of laryngectomy Status: Chronic Assessment and plan: Impression: Status post laryngectomy for cancer stable with no evidence of any recurrence Current Visit: No (6) S/P BKA (below knee amputation) unilateral Status: Acute Assessment and plan: 02/24/2017. Patient status post left BKA amputation. Generally doing extremely well with moderate discomfort and some pain. Dressing change today is clean and dry with no sign of any infection and the drain was removed. Will start working on getting him a temporary prosthesis on the right lower extremity and to try to get him to rehab for some therapy to get him more functional. Will maintain present treatment at this time change his dressing again on Monday02/27/2017. Patient is progressing well from his amputation and the wound looks clean and dry with no sign of any skin loss or swelling or edema. Has moderate discomfort especially with dressing changes but otherwise is in good shape at this time and seems to have good strength in his thigh muscles. At this point we are attempting to get the patient possibly to combine her for some rehab. I am attempting to get stump stockings for both BKA's for simplification of care. Also trying to get him fitted for prosthesis on the right and also to get a temporary prosthesis that he can use especially with rehab to see if we can get him functional at this time. Patient seems motivated to try to get ambulatory and if we can get him used to handling one prosthesis and make it easier for him to deal with the other one. Current Visit: Yes Subjective Patient reports: Present: no new complaints, tolerating a regular diet, bowel movement, afebrile Exam - Constitutional Vitals: Period Temp Pulse Resp BP Sys/Madsen Pulse Ox Last 24 Hr 97.2 F-98.5 F 64-72 16-20 105-115/45-67 95-99 General appearance: mild distress - Head Head exam: Present: normal inspection - ENT ENT exam: Present: normal exam - Neck Neck exam: Present: normal inspection - Respiratory Respiratory exam: Present: clear to auscultation bilaterally, rales - Cardiovascular Cardiovascular exam: Present: RRR - GI/Abdominal GI/Abdominal exam: Present: hypoactive bowel sounds, soft - Extremities Exam Extremities exam: Present: normal inspection, other - Back Exam Back exam: Present: normal inspection - Neurological Exam Neurological exam: Present: alert, oriented X3, CN II-XII intact - Skin Skin exam: Present: normal color, warm, dry Results - Labs CBC & BMP: 02/27/17 05:50 02/27/17 05:50 Lab Results: I have reviewed the past 24 hour labs Quality Measures - VTE Contraindication to Pharmacological VTE Prophylaxis: High Risk of Bleeding Contraindication to Mechanical VTE Prophylaxis: Ischemic Vascular Disease
[2017-02-27] MEDS: CALCIUM ACETATE 667 MG CAPSULE PO SCH ×3 (08:42→16:45)
[2017-02-27] MEDS: PENTOXIFYLLINE 400 MG TABLET PO SCH ×3 (08:43→20:54)
[2017-02-27] MEDS: CLOBETASOL 0.05% OINT 15 GM TUBE TOP SCH ×2 (08:44→20:55)
[2017-02-27] MEDS: BRIMONIDINE 0.1% OPH SOLN 5 ML BOTTLE BOTH EYES SCH ×3 (08:44→20:54)
[2017-02-27] MEDS: CETIRIZINE 10 MG TABLET PO SCH (08:44)
[2017-02-27] MEDS: ASPIRIN EC 325 MG TABLET PO SCH (08:44)
[2017-02-27] MEDS: PANTOPRAZOLE 40 MG TABLET PO SCH (08:44)
[2017-02-27] MEDS: ZINC OXIDE PASTE 113 GM TUBE TOP SCH ×2 (08:44→20:54)
[2017-02-27] MEDS: LIDOCAINE 5% PATCH TRANSDERM SCH (08:45)
[2017-02-27] MEDS: INSULIN REGULAR 100 UNIT/ML SUBCUT SCH ×4 (08:45→20:54)
--- NOTE | 2017-02-27 12:24 | Dialysis Note ---
Dialysis Note - Dialysis Note Mr. Anderson is seen during hemodialysis. His tolerated dialysis well with no problems. He is lying flat breathing comfortably. Plan is to continue with his wound care and hopefully he will be more functional since he is out of pain
[2017-02-27] MEDS: GABAPENTIN 300 MG CAPSULE PO SCH (20:54)
[2017-02-27] MEDS: ATORVASTATIN 10 MG TABLET PO SCH (20:54)
--- NOTE | 2017-02-28 08:28 | General Surgery Progress Note ---
Assessment and Plan (1) Peripheral vascular disease Status: Acute Assessment and plan: Impression: Peripheral arterial disease of the left lower extremity with rest pain of the foot and ulcerations. Plan: Basic wound care We will consult Dr. Bird for evaluation to see if there is anything that might improve circulation. May be facing possible amputation. 02/21/2017. Patient was found with his head up in the leg hanging off the bed. He clearly is not resting well due to the pain in his foot. He indicates he continues to have pain in that leg at this time. I reviewed the arteriograms and the reports by Dr. Baltazar. Waiting for Dr. Bird's final evaluation but I feel like I know that it is going to be not unreconstructable process. The arteriogram did not indicate any real flow into the foot at this time. I feel that we are probably facing an amputation and I have briefly spoken to the patient and will talk to him further about this process. It looks like that this would be the only way that he can gain some relief to the progression of this process. BKA appears to be possible at this point. Current Visit: No (2) End stage renal disease on dialysis Problem details: Tolerated HD yesterday s complications. Routine HD Monday. UF to EDW as tolerated by hemodynamics. Status: Chronic Assessment and plan: Impression: Chronic renal failure dialysis patient Plan: Nephrology to manage Current Visit: No (3) Status post below knee amputation of right lower extremity Status: Chronic Assessment and plan: Impression status post right BKA amputation secondary to poor circulation Current Visit: No (4) Diabetes Status: Chronic Assessment and plan: Impression: Diabetes mellitus adult onset Medical manage Current Visit: No Qualifiers: Diabetes mellitus type: type 2 Diabetes mellitus complication detail: with chronic kidney disease Chronic kidney disease stage: on chronic dialysis (5) History of laryngectomy Status: Chronic Assessment and plan: Impression: Status post laryngectomy for cancer stable with no evidence of any recurrence Current Visit: No (6) S/P BKA (below knee amputation) unilateral Status: Acute Assessment and plan: 02/24/2017. Patient status post left BKA amputation. Generally doing extremely well with moderate discomfort and some pain. Dressing change today is clean and dry with no sign of any infection and the drain was removed. Will start working on getting him a temporary prosthesis on the right lower extremity and to try to get him to rehab for some therapy to get him more functional. Will maintain present treatment at this time change his dressing again on Monday02/27/2017. Patient is progressing well from his amputation and the wound looks clean and dry with no sign of any skin loss or swelling or edema. Has moderate discomfort especially with dressing changes but otherwise is in good shape at this time and seems to have good strength in his thigh muscles. At this point we are attempting to get the patient possibly to combine her for some rehab. I am attempting to get stump stockings for both BKA's for simplification of care. Also trying to get him fitted for prosthesis on the right and also to get a temporary prosthesis that he can use especially with rehab to see if we can get him functional at this time. Patient seems motivated to try to get ambulatory and if we can get him used to handling one prosthesis and make it easier for him to deal with the other one. 02/28/2017. Patient continues to do well minimal discomfort with his amputation site dressings in place. We now have stump stockings available and he has been fitted for prosthesis on the right. Hoping to get him to rehab so that he can began to get more functional and maybe even if we can get the temporary prosthesis he can learn to ambulate a little bit with that until his permanent comes in. Current Visit: Yes Subjective Patient reports: Present: feels better, pain is less, tolerating a regular diet , afebrile, other (Itching on his back) Exam - Constitutional Vitals: Period Temp Pulse Resp BP Sys/Madsen Pulse Ox Last 24 Hr 97.1 F-97.9 F 68-78 16-18 105-135/53-83 90-97 General appearance: mild distress - Head Head exam: Present: normal inspection - ENT ENT exam: Present: normal exam - Neck Neck exam: Present: normal inspection - Respiratory Respiratory exam: Present: clear to auscultation bilaterally, rales - Cardiovascular Cardiovascular exam: Present: RRR - GI/Abdominal GI/Abdominal exam: Present: hypoactive bowel sounds, soft - Extremities Exam Extremities exam: Present: other (Dressings are in place and look good with stump stockings now available) - Back Exam Back exam: Present: normal inspection - Neurological Exam Neurological exam: Present: alert, oriented X3, CN II-XII intact - Skin Skin exam: Present: normal color, warm, dry Results - Labs CBC & BMP: 02/27/17 05:50 02/27/17 05:50 Lab Results: I have reviewed the past 24 hour labs Quality Measures - VTE Contraindication to Pharmacological VTE Prophylaxis: High Risk of Bleeding Contraindication to Mechanical VTE Prophylaxis: Ischemic Vascular Disease
[2017-02-28] MEDS: CALCIUM ACETATE 667 MG CAPSULE PO SCH ×3 (09:37→16:57)
[2017-02-28] MEDS: PENTOXIFYLLINE 400 MG TABLET PO SCH ×3 (09:38→22:04)
[2017-02-28] MEDS: PANTOPRAZOLE 40 MG TABLET PO SCH (09:38)
[2017-02-28] MEDS: CETIRIZINE 10 MG TABLET PO SCH (09:38)
[2017-02-28] MEDS: LIDOCAINE 5% PATCH TRANSDERM SCH (09:39)
[2017-02-28] MEDS: CLOBETASOL 0.05% OINT 15 GM TUBE TOP SCH ×2 (09:39→22:05)
[2017-02-28] MEDS: INSULIN REGULAR 100 UNIT/ML SUBCUT SCH ×4 (09:39→22:05)
[2017-02-28] MEDS: BRIMONIDINE 0.1% OPH SOLN 5 ML BOTTLE BOTH EYES SCH ×3 (09:39→22:05)
[2017-02-28] MEDS: ASPIRIN EC 325 MG TABLET PO SCH (09:39)
[2017-02-28] MEDS: ZINC OXIDE PASTE 113 GM TUBE TOP SCH ×2 (09:39→22:04)
--- NOTE | 2017-02-28 14:27 | Nephrology Progress Note ---
Nephrology - PN: Subj Interval history: Mr. Anderson is seen in follow-up of his end-stage renal disease. He is doing well breathing comfortably. He is not complaining of pain and has no complaints today. He seems to be eating well. Plan is to move into rehab at some point and hopefully he will be able to use a prosthesis to allow a little more mobility Exam (PN)-Nephrology - Vital Signs Vital signs: Period Temp Pulse Resp BP Sys/Madsen Pulse Ox Last 24 Hr 97.1 F-97.9 F 20-82 16- 111-135/66-83 90-96 - Lab 02/27/17 05:50 02/27/17 05:50 Most recent lab results Calcium 8.2 MG/DL (8.5-10.1) L 02/27/17 05:50 Magnesium 2.4 MG/DL (1.8-2.4) 02/27/17 05:50 Assessment and Plan (1) ESRD on hemodialysis Status: Chronic Current Visit: No (2) Diabetes Status: Chronic Current Visit: No Qualifiers: Diabetes mellitus type: type 2 Diabetes mellitus complication detail: with chronic kidney disease Chronic kidney disease stage: on chronic dialysis (3) Tobacco abuse Status: Chronic Current Visit: No (4) Peripheral vascular disease Problem details: known longstanding PVD with right BKA in the last year Status : Acute Current Visit: Yes
[2017-02-28] MEDS: ATORVASTATIN 10 MG TABLET PO SCH (22:04)
[2017-02-28] MEDS: GABAPENTIN 300 MG CAPSULE PO SCH (22:04)
[2017-03-01] MEDS: CALCIUM ACETATE 667 MG CAPSULE PO SCH ×3 (08:51→16:50)
[2017-03-01] MEDS: PENTOXIFYLLINE 400 MG TABLET PO SCH ×3 (08:51→20:03)
[2017-03-01] MEDS: CETIRIZINE 10 MG TABLET PO SCH (08:51)
[2017-03-01] MEDS: LIDOCAINE 5% PATCH TRANSDERM SCH (08:51)
[2017-03-01] MEDS: ASPIRIN EC 325 MG TABLET PO SCH (08:51)
[2017-03-01] MEDS: BRIMONIDINE 0.1% OPH SOLN 5 ML BOTTLE BOTH EYES SCH ×3 (08:52→20:05)
[2017-03-01] MEDS: CLOBETASOL 0.05% OINT 15 GM TUBE TOP SCH ×2 (08:52→20:05)
[2017-03-01] MEDS: ZINC OXIDE PASTE 113 GM TUBE TOP SCH ×2 (08:52→20:03)
[2017-03-01] MEDS: PANTOPRAZOLE 40 MG TABLET PO SCH (08:52)
[2017-03-01] MEDS: INSULIN REGULAR 100 UNIT/ML SUBCUT SCH ×4 (08:52→20:03)
--- NOTE | 2017-03-01 12:55 | General Surgery Progress Note ---
Assessment and Plan (1) Peripheral vascular disease Status: Acute Assessment and plan: 02/23/2017. The patient is stable postop left BKA. Lazarus is being weaned, and vital signs and EKG are stable at this time although he does have hyperkalemia, but is scheduled for hemodialysis this morning. I have spoken with his nurse, who will make Dr. Mckeon aware that his K is 6 and of fasciculations, and hopefully we can dialyze him sooner rather than later. If he remains stable, he might be ready to transfer back to the floor after HD. 02/17/2017. Ischemic peripheral vascular disease, progressive with left lower extremity ulcerations. Dr. Heath's consult was reviewed. We appreciate his willingness to consult with interventional radiology for consideration of formal arteriogram to see if there are any maneuvers that can increase blood flow to this patient with severe rest pain. 03/01/17 Stable post op left BKA. We are awaiting word as to whether or not [facility] will accept him for rehab once he receives his right temporary prosthesis. IN the meantime, we are making good progress with his left stump wound and this should require minimal wound care. Current Visit: No (2) Nausea & vomiting Status: Acute Assessment and plan: 02/17/2017. No complaint of nausea and vomiting. We will go ahead and get an abdominal film. We will treat this symptomatically with Zofran. It might be related to his medications or gastroparesis; another etiology could be constipation, as he does use quite a lot of narcotics for his lower extremity rest pain. The plain films show no evidence of obstruction and a good deal of stool in the colon, we will plan to treat this with laxatives. Current Visit: Yes Subjective Patient reports: Present: other (Pt sleepy during HD and does not awaken easily. ) Exam - Constitutional Vitals: Period Temp Pulse Resp BP Sys/Madsen Pulse Ox Last 24 Hr 96.4 F-97.7 F 74-91 18-20 120-141/62-82 91-95 General appearance: no acute distress, other (He's examined during dialysis and is not easily aroused; his Nurse Janis says he was awake earlier, ate breakfast well & was without complaints.) - Extremities Exam Extremities exam: Present: other (LLE stump dressing is clean and dry; I elected not to change dressing during dialysis but left orders for his nurse on the floor to change the dressing per wound care orders, using his new stump stocking as a secondary dressing. ) Results - Labs CBC & BMP: 02/27/17 05:50 02/27/17 05:50 Quality Measures - VTE Contraindication to Pharmacological VTE Prophylaxis: High Risk of Bleeding Contraindication to Mechanical VTE Prophylaxis: Ischemic Vascular Disease
--- NOTE | 2017-03-01 15:18 | Nephrology Progress Note ---
Nephrology - PN: Subj Interval history: Mr. Anderson is seen in follow-up of his end-stage renal disease. He dialyzed earlier today and did well. He is resting at present and is without complaint. Plans are to get him into a rehab situation Exam (PN)-Nephrology - Vital Signs Vital signs: Period Temp Pulse Resp BP Sys/Madsen Pulse Ox Last 24 Hr 96.4 F-97.7 F 74-91 18-20 120-141/62-82 91-95 - Lab 02/27/17 05:50 02/27/17 05:50 Most recent lab results Calcium 8.2 MG/DL (8.5-10.1) L 02/27/17 05:50 Magnesium 2.4 MG/DL (1.8-2.4) 02/27/17 05:50 Assessment and Plan (1) ESRD on hemodialysis Status: Chronic Current Visit: No (2) Diabetes Status: Chronic Current Visit: No Qualifiers: Diabetes mellitus type: type 2 Diabetes mellitus complication detail: with chronic kidney disease Chronic kidney disease stage: on chronic dialysis (3) Tobacco abuse Status: Chronic Current Visit: No (4) Peripheral vascular disease Problem details: known longstanding PVD with right BKA in the last year Status : Acute Current Visit: Yes
[2017-03-01] MEDS: GABAPENTIN 300 MG CAPSULE PO SCH (20:03)
[2017-03-01] MEDS: ATORVASTATIN 10 MG TABLET PO SCH (20:03)
[2017-03-02] MEDS: INSULIN REGULAR 100 UNIT/ML SUBCUT SCH ×4 (08:13→20:30)
[2017-03-02] MEDS: CETIRIZINE 10 MG TABLET PO SCH (09:27)
[2017-03-02] MEDS: ASPIRIN EC 325 MG TABLET PO SCH (09:27)
[2017-03-02] MEDS: PANTOPRAZOLE 40 MG TABLET PO SCH (09:27)
[2017-03-02] MEDS: PENTOXIFYLLINE 400 MG TABLET PO SCH ×3 (09:27→20:32)
[2017-03-02] MEDS: BRIMONIDINE 0.1% OPH SOLN 5 ML BOTTLE BOTH EYES SCH ×3 (09:28→20:33)
[2017-03-02] MEDS: CALCIUM ACETATE 667 MG CAPSULE PO SCH ×3 (09:28→17:32)
[2017-03-02] MEDS: CLOBETASOL 0.05% OINT 15 GM TUBE TOP SCH ×2 (09:28→20:33)
[2017-03-02] MEDS: LIDOCAINE 5% PATCH TRANSDERM SCH (09:29)
[2017-03-02] MEDS: ZINC OXIDE PASTE 113 GM TUBE TOP SCH ×2 (10:09→20:33)
--- NOTE | 2017-03-02 17:09 | Nephrology Progress Note ---
Nephrology - PN: Subj Interval history: Mr. Anderson is seen in follow-up of his end-stage renal disease. He is doing well but complaining of discomfort in the left BKA stump. He does not seem in pain during our visit. He has is temporary prosthesis for his right leg and hope is that he will be a bit more mobile with that. Plan is for hemodialysis tomorrow. Exam (PN)-Nephrology - Vital Signs Vital signs: Period Temp Pulse Resp BP Sys/Amdsen Pulse Ox Last 24 Hr 97.2 F-98.4 F 74-84 16-20 114-130/61-76 92-99 - Lab 02/27/17 05:50 02/27/17 05:50 Most recent lab results Calcium 8.2 MG/DL (8.5-10.1) L 02/27/17 05:50 Magnesium 2.4 MG/DL (1.8-2.4) 02/27/17 05:50 Assessment and Plan (1) ESRD on hemodialysis Status: Chronic Current Visit: No (2) Diabetes Status: Chronic Current Visit: No Qualifiers: Diabetes mellitus type: type 2 Diabetes mellitus complication detail: with chronic kidney disease Chronic kidney disease stage: on chronic dialysis (3) Tobacco abuse Status: Chronic Current Visit: No (4) Peripheral vascular disease Problem details: known longstanding PVD with right BKA in the last year Status : Acute Current Visit: Yes Specialty Discharge - Follow Up or Referrals
[2017-03-02] MEDS: GABAPENTIN 300 MG CAPSULE PO SCH (20:31)
[2017-03-02] MEDS: ATORVASTATIN 10 MG TABLET PO SCH (20:31)
--- NOTE | 2017-03-03 08:24 | General Surgery Progress Note ---
Assessment and Plan (1) Peripheral vascular disease Status: Acute Assessment and plan: Impression: Peripheral arterial disease of the left lower extremity with rest pain of the foot and ulcerations. Plan: Basic wound care We will consult Dr. Bird for evaluation to see if there is anything that might improve circulation. May be facing possible amputation. 02/21/2017. Patient was found with his head up in the leg hanging off the bed. He clearly is not resting well due to the pain in his foot. He indicates he continues to have pain in that leg at this time. I reviewed the arteriograms and the reports by Dr. Baltazar. Waiting for Dr. Bird's final evaluation but I feel like I know that it is going to be not unreconstructable process. The arteriogram did not indicate any real flow into the foot at this time. I feel that we are probably facing an amputation and I have briefly spoken to the patient and will talk to him further about this process. It looks like that this would be the only way that he can gain some relief to the progression of this process. BKA appears to be possible at this point. Current Visit: No (2) End stage renal disease on dialysis Problem details: Tolerated HD yesterday s complications. Routine HD Monday. UF to EDW as tolerated by hemodynamics. Status: Chronic Assessment and plan: Impression: Chronic renal failure dialysis patient Plan: Nephrology to manage Current Visit: No (3) Status post below knee amputation of right lower extremity Status: Chronic Assessment and plan: Impression status post right BKA amputation secondary to poor circulation Current Visit: No (4) Diabetes Status: Chronic Assessment and plan: Impression: Diabetes mellitus adult onset Medical manage Current Visit: No Qualifiers: Diabetes mellitus type: type 2 Diabetes mellitus complication detail: with chronic kidney disease Chronic kidney disease stage: on chronic dialysis (5) History of laryngectomy Status: Chronic Assessment and plan: Impression: Status post laryngectomy for cancer stable with no evidence of any recurrence Current Visit: No (6) S/P BKA (below knee amputation) unilateral Status: Acute Assessment and plan: 02/24/2017. Patient status post left BKA amputation. Generally doing extremely well with moderate discomfort and some pain. Dressing change today is clean and dry with no sign of any infection and the drain was removed. Will start working on getting him a temporary prosthesis on the right lower extremity and to try to get him to rehab for some therapy to get him more functional. Will maintain present treatment at this time change his dressing again on Monday02/27/2017. Patient is progressing well from his amputation and the wound looks clean and dry with no sign of any skin loss or swelling or edema. Has moderate discomfort especially with dressing changes but otherwise is in good shape at this time and seems to have good strength in his thigh muscles. At this point we are attempting to get the patient possibly to combine her for some rehab. I am attempting to get stump stockings for both BKA's for simplification of care. Also trying to get him fitted for prosthesis on the right and also to get a temporary prosthesis that he can use especially with rehab to see if we can get him functional at this time. Patient seems motivated to try to get ambulatory and if we can get him used to handling one prosthesis and make it easier for him to deal with the other one. 02/28/2017. Patient continues to do well minimal discomfort with his amputation site dressings in place. We now have stump stockings available and he has been fitted for prosthesis on the right. Hoping to get him to rehab so that he can began to get more functional and maybe even if we can get the temporary prosthesis he can learn to ambulate a little bit with that until his permanent comes in. 03/03/2017. Patient is doing well progressing nicely at this point. Incision is healing nicely and looks clean and dry with no sign of any ischemic changes. Little bit concerned that he is having a little more pain and discomfort today than I would anticipate him having at this point. Plan to analyze what this might represent at this point but the wound looks good. We managed to get him in Temporary prosthesis and physical therapy is working with him about getting functional with it for the right lower extremity. Hopes are that we will be able to get him to combine her for some rehab and eventually once his left wound has healed well enough to get him into a prosthesis on that side also. Current Visit: Yes Subjective Patient reports: Present: no new complaints, pain is less, afebrile Exam - Constitutional Vitals: Period Temp Pulse Resp BP Sys/Madsen Pulse Ox Last 24 Hr 96.9 F-98.4 F 72-83 16-188 107-131/65-96 90-93 General appearance: mild distress - Head Head exam: Present: normal inspection - ENT ENT exam: Present: normal exam - Neck Neck exam: Present: normal inspection - Respiratory Respiratory exam: Present: clear to auscultation bilaterally, rales - Cardiovascular Cardiovascular exam: Present: RRR - GI/Abdominal GI/Abdominal exam: Present: hypoactive bowel sounds, soft - Extremities Exam Extremities exam: Present: other (Left BKA wound looks good with no sign of ischemic changes present clean and dry no unusual swelling.) - Back Exam Back exam: Present: normal inspection - Neurological Exam Neurological exam: Present: alert, oriented X3, CN II-XII intact - Skin Skin exam: Present: normal color, warm, dry Results - Labs CBC & BMP: 02/27/17 05:50 02/27/17 05:50 Lab Results: I have reviewed the past 24 hour labs Quality Measures - VTE Contraindication to Pharmacological VTE Prophylaxis: High Risk of Bleeding Contraindication to Mechanical VTE Prophylaxis: Ischemic Vascular Disease Specialty Discharge - Follow Up or Referrals
--- NOTE | 2017-03-03 08:45 | Nephrology Progress Note ---
Nephrology - PN: Subj Interval history: Mr. Anderson is seen in follow-up of his end-stage renal disease. He is doing well and is without complaints. He will be dialyzed today and then should be transferred to trauma and rehab. He is breathing easily and has no edema. Exam (PN)-Nephrology - Vital Signs Vital signs: Period Temp Pulse Resp BP Sys/Madsen Pulse Ox Last 24 Hr 96.9 F-98.4 F 72-83 16-188 107-131/65-96 90-93 - Lab 02/27/17 05:50 02/27/17 05:50 Most recent lab results Calcium 8.2 MG/DL (8.5-10.1) L 02/27/17 05:50 Magnesium 2.4 MG/DL (1.8-2.4) 02/27/17 05:50 Assessment and Plan (1) ESRD on hemodialysis Status: Chronic Current Visit: No (2) Diabetes Status: Chronic Current Visit: No Qualifiers: Diabetes mellitus type: type 2 Diabetes mellitus complication detail: with chronic kidney disease Chronic kidney disease stage: on chronic dialysis (3) Tobacco abuse Status: Chronic Current Visit: No (4) Peripheral vascular disease Problem details: known longstanding PVD with right BKA in the last year Status : Acute Current Visit: Yes Specialty Discharge - Follow Up or Referrals
[2017-03-03] MEDS: CALCIUM ACETATE 667 MG CAPSULE PO SCH ×2 (08:46→11:09)
[2017-03-03] MEDS: ZINC OXIDE PASTE 113 GM TUBE TOP SCH (08:46)
[2017-03-03] MEDS: BRIMONIDINE 0.1% OPH SOLN 5 ML BOTTLE BOTH EYES SCH (08:46)
[2017-03-03] MEDS: CLOBETASOL 0.05% OINT 15 GM TUBE TOP SCH (08:46)
[2017-03-03] MEDS: ASPIRIN EC 325 MG TABLET PO SCH (08:47)
[2017-03-03] MEDS: PENTOXIFYLLINE 400 MG TABLET PO SCH (08:47)
[2017-03-03] MEDS: PANTOPRAZOLE 40 MG TABLET PO SCH (08:47)
[2017-03-03] MEDS: CETIRIZINE 10 MG TABLET PO SCH (08:47)
[2017-03-03] MEDS: LIDOCAINE 5% PATCH TRANSDERM SCH (08:47)
[2017-03-03] MEDS: INSULIN REGULAR 100 UNIT/ML SUBCUT SCH ×2 (08:49→10:49)
--- NOTE | 2017-03-03 09:15 | Case Mgmt Physician Query Form ---
LONG STAY PHYSICIAN RECERTIFICATION *This form is to be completed for all Medicare patients before they reach day 20 of their hospitalization. Please complete each section as appropriate.* I certify that hospitalization, and continued hospitalization, for this patient is medically necessary as follows: Bilateral amputee with minimal help at home 1) Reasons of either continued hospitalization of the patient for medical treatment or medically required diagnostic study or special or unusual services for cost outlier cases are as follows: Wound care has been continued in the left lower extremity and we are attempting to get physical therapy to get him temporary prosthesis for rehab and increase his function ability. Waiting on the rehab facility to accept him 2) Estimated time patient will need to remain in hospital: Patient is scheduled to leave today 3) Plan for Post Hospital Care: ( ) Home with Primary Care Follow up ( ) Home with Home Health Follow up (x ) LTACH/ Acute Care Rehab/ SNF/Correction ( ) Other: If you have any questions, please contact me. Thank you, Ana Redding RN Case Management P: [phone] F [phone] E: [email or web address]
--- NOTE | 2017-03-03 09:24 | Dialysis Note ---
Dialysis Note - Dialysis Note Mr. Anderson is seen during his hemodialysis. He is tolerating dialysis well and plans to go to trauma and rehab following dialysis. Will continue dialysis there at [facility] next week
--- NOTE | 2017-03-03 10:37 | Discharge Summary ---
Hospital Course - Time spent with patient Time with patient DS: Greater than 30 minutes Diagnosis - Discharge Diagnosis (1) Peripheral vascular disease Status: Chronic (2) End stage renal disease on dialysis Status: Chronic (3) Status post below knee amputation of right lower extremity Status: Chronic (4) Diabetes Status: Chronic (5) History of laryngectomy Status: Chronic (6) S/P BKA (below knee amputation) unilateral Status: Chronic Specialty Discharge - Follow Up or Referrals Follow up with: Yogi Tovar MD [Physician] - 1 Month Discharge Plan - Discharge Data Disposition: Disch/Xfer-Ip Rehab Fac Condition at Discharge: Stable Discharge Diet: diabetic diet Activity: as per physical therapy, other (Fall precaution) Hygiene: may shower Weight Bearing at Discharge: other (Rehab to manage his rehab to the temporary right prosthesis) Driving: other (Indeterminant) Contact your physician if you experience:: fever over 101, Redness or swelling, Bleeding, pain uncontrolled by pain medications Wound / Dressing Care Instructions: Continue the wound care per the orders from the [facility] - Discharge Medications No Action Omeprazole [Prilosec] 20 mg PO DAILY Carvedilol 6.25 mg PO BID Calcium Acetate [Phoslo] 667 mg PO WITH SNACKS Mupirocin 2% Oint [Bactroban 2% Oint] 1 applic TOP TID Acetaminophen 650 mg PO Q6H PRN PRN Reason: fever/pain Cetirizine Tab [ZyrTEC Tab] 10 mg PO DAILY Gabapentin Cap/Tab [Neurontin Cap/Tab] 300 mg PO BEDTIME Atorvastatin [Lipitor] 10 mg PO BEDTIME Calcium Acetate [Phoslo] 2,001 mg PO TID W/MEALS HYDROcodone/ACETAMIN 10-325 [[place] 10-325] 1 tablet PO Q6HR PRN PRN Reason: Pain Gentamicin Sulfate [Gentamicin 0.1% Cream] 1 applic TOP DAILY - Follow Up or Referral - Forms/Instructions Instructions: Below the Knee Amputation (DC), Peripheral Vascular Disorders (DC ), Acute Nausea and Vomiting (DC), Dyspnea (GEN) Exam - Constitutional Vitals: Period Temp Pulse Resp BP Sys/Madsen Pulse Ox Last 24 Hr 96.9 F-98.4 F 72-83 16-188 107-131/65-96 90-93 General appearance: mild distress, other (Still with some discomfort in the left BKA wound) - Head Head exam: Present: normal inspection - Eye Pupils: Present: SUSAN - ENT ENT exam: Present: normal exam - Neck Neck exam: Present: other (Permanent tracheostomy) - Respiratory Respiratory exam: Present: rales - Cardiovascular Cardiovascular exam: Present: regular rate and rhythm - GI/Abdominal GI/Abdominal exam: Present: hypoactive bowel sounds, soft - Extremities Exam Extremities exam: Present: other (Wound of the left BKA looks good with no ischemic changes present no swelling or erythematous changes.) - Back Exam Back exam: Present: normal inspection - Neurological Exam Neurological exam: Present: alert, oriented X3, CN II-XII intact - Psychiatric Psychiatric exam: Present: agitated, anxious - Skin Skin exam: Present: normal color, warm, dry Discharge Results Labs on day of discharge: Labs from last 24 hours 03/03/17 03/02/17 03/02/17 07:33 19:48 16:14 POC Glucose 156 H 211 H 122 H 03/02/17 11:13 POC Glucose 119 H DS: Provider Date of admission: 02/16/17 13:45 Primary care physician: Henna Fortune MD Attending physician on admission: Yogi Tovar MD Consults: 02/16/17 11:25 Consult to Physician [CONS] 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 02/16/17 18:21 Consult to Physician [CONS] Routine Comment: Consulting Provider: Rony Heath When should Consulting Provider be notified: In am Person Notified: FRITZ Date Notified: 02/17/17 Time Notified: 09:50 Consult Notification Comment: Dialysis patient with rest pain of the left foot. See the CTA and evaluate for any possible way of improving the flow to the foot. There may be a history that Dr. Faria did a vascular reconstruction on this patient when he was here. 02/17/17 09:42 Consult to Physician [CONS] Routine Comment: evaluate for arteriogram and possible endovascular Consulting Provider: Joaquin Spencer Consult to Specialist Group: Interventional Radiology Person Notified: Ana Date Notified: 02/17/17 Time Notified: 09:54 02/21/17 19:15 Consult to Anesthesiology [CONS] Routine Consulting Provider: Reason for Anesthesiology: Pre-op Clearance 02/24/17 08:45 Consult to Case Mgmt/Social Srvs [CONS] Routine Reason for Case Mgmt/Social Srvs: Discharge Planning Orthotic Management Equipment Rehab Consult Comment: Rehab/ [facility] to get temporary prosthesis for rehab 02/24/17 16:04 Consult to Occupational Therapy [CONS] Routine Reason for Occupational Therapy: Evaluate and Treat Consult to Physical Therapy [CONS] Routine Reason for Physical Therapy: Evaluate and Treat Consult Comment: patient with new left bka, old right bka Discharging clinician: Yogi Tovar MD Expected date of discharge: 03/03/17
[2017-03-03 14:02] VITALS: BP 127/75
== END 2017-03-03 14:10 | DRG 239 ==
LOC: N.5E 13:45 → N.ICU 02-22 14:00 → N.5E 02-23 17:59
PROVIDERS: ADMIT Specialist; ATTEND Specialist

== ENCOUNTER 2017-03-18 20:17 | Inpatient (IN) ==
[~2017-03-18 20:17] MED LIST: PROPOFOL 200 MG/20 ML VIAL IV ONE
[2017-03-18] MEDS ORDERED: ALBUTEROL NEB SOLN 5 MG/ML 20 ML/BOTTLE CONT NEB STA (21:01)
[2017-03-19] MEDS ORDERED: ONDANSETRON 4 MG/2 ML VIAL IV PRN (00:39)
[2017-03-19] MEDS ORDERED: ALBUTEROL 2.5 MG/3 ML NEB RESP TX PRN (00:39)
[2017-03-19 01:45] LABS: Basophils % 0.5 % (0.0-0.8); Eosinophils % 0.3 % (0.00-10.9); Hematocrit 34.4 VOL% (42.0-52.0); Hemoglobin 10.9 GM/DL (14.0-18.0); Immature Granulocytes % 0.3 %; Immature Granulocytes Absolute 0.02 #; Lymphocytes # 0.5 10*3/uL (1.4-4.0); Mean Corpuscular HGB Conc 31.7 GM/DL (32-36); Mean Corpuscular Hemoglobin 32 PG (27-34); Mean Corpuscular Volume 99.4 FL (87-102); Mean Platelet Volume 10.5 FL (9.6-12.0); Monocytes # 1.1 10*3/uL (0.11-0.8); Monocytes % 14.2 % (1.7-12.7); Neutrophils # 6.2 10*3/uL (1.4-7.4); Neutrophils % 78.7 % (38.7-73.9); Red Blood Count 3.46 MC/CUMM (3.8-5.5); Red Cell Distribution Width 19.6 % (9.3-17.3); White Blood Count 7.9 T/CUMM (4-12)
[2017-03-19 01:48] LABS: Platelet Count 94 T/CUMM (130-400)
[2017-03-19 02:17] LABS: Alanine Aminotransferase < 6 U/L (16-61); Albumin 2.6 G/DL (3.4-5.0); Alkaline Phosphatase 94 U/L (45-117); Aspartate Amino Transferase 11 U/L (0-37); Blood Urea Nitrogen 69 MG/DL (7-18); Calcium 8.4 MG/DL (8.5-10.1); Glucose 73 MG/DL (74-106); Osmolality,Calculated 297.4 MOS/KG (273-304); Sodium 140 MMOL/L (136-145); Total Protein 6.5 G/DL (6.4-8.3)
[2017-03-19 02:24] LABS: Potassium 6.6 MMOL/L (3.5-5.1)
[2017-03-19] MEDS: MORPHINE 2 MG/1 ML SYRINGE IV PRN (04:50)
[2017-03-19 05:00] LABS: Hypochromasia 1+; Ovalocytes Few
[2017-03-19 05:01] LABS: Microcytosis 1+; Platelet Estimate Decreased
[2017-03-19] MEDS ORDERED: CALCIUM ACETATE 667 MG CAPSULE PO SCH (07:00)
[2017-03-19] MEDS ORDERED: FONDAPARINUX 2.5 MG/0.5 ML SYRINGE SUBCUT SCH (09:00)
[2017-03-19] MEDS: SODIUM POLYSTYRENE SULFATE 15 GM/60 ML BOTTLE PO SCH ×2 (09:47→14:06)
[2017-03-19] MEDS: ASPIRIN EC 81 MG TABLET PO SCH (09:48)
[2017-03-19] MEDS: CARVEDILOL 6.25 MG TABLET PO SCH ×2 (09:48→20:09)
[2017-03-19] MEDS: CALCIUM ACETATE 667 MG CAPSULE PO SCH ×3 (09:56→17:42)
[2017-03-19] MEDS: ATORVASTATIN 10 MG TABLET PO SCH (20:09)
[2017-03-19] MEDS: GABAPENTIN 300 MG CAPSULE PO SCH (20:09)
[2017-03-19] MEDS: HEPARIN 5,000 UNIT/1 ML VIAL SUBCUT SCH (21:26)
[2017-03-19] MEDS ORDERED: PERMETHRIN 5% CREAM 60 GM TUBE TOP ONE (23:30)
[2017-03-20] MEDS ORDERED: DEXTROSE 50% 25 GM/50 ML VIAL IV PRN (04:54)
[2017-03-20] MEDS ORDERED: GLUCAGON 1 MG VIAL IM PRN (04:54)
[2017-03-20 05:35] LABS: Calcium 8.1 MG/DL (8.5-10.1); Osmolality,Calculated 278.7 MOS/KG (273-304); Potassium 4.7 MMOL/L (3.5-5.1)
[2017-03-20] MEDS: HEPARIN 5,000 UNIT/1 ML VIAL SUBCUT SCH ×3 (05:59→22:48)
[2017-03-20] MEDS: ASPIRIN EC 81 MG TABLET PO SCH (08:26)
[2017-03-20] MEDS: CALCIUM ACETATE 667 MG CAPSULE PO SCH ×4 (08:26→17:47)
[2017-03-20] MEDS: CARVEDILOL 6.25 MG TABLET PO SCH ×2 (08:26→22:49)
[2017-03-20] MEDS ORDERED: INFLUENZA VIRUS VACCINE 0.5 ML SYRINGE IM ONE (09:00)
[2017-03-20] MEDS ORDERED: ACETAMINOPHEN 325 MG TABLET PO PRN (11:20)
[2017-03-20] MEDS: MUPIROCIN 2% OINT 22 GM TUBE TOP SCH ×2 (17:37→22:49)
[2017-03-20] MEDS: CETIRIZINE 10 MG TABLET PO SCH (17:37)
[2017-03-20] MEDS: PANTOPRAZOLE 40 MG TABLET PO SCH (17:37)
[2017-03-20] MEDS: GENTAMICIN 0.1% CREAM 15 GM TUBE TOP SCH (17:45)
[2017-03-20] MEDS: ATORVASTATIN 10 MG TABLET PO SCH (22:49)
[2017-03-20] MEDS: GABAPENTIN 300 MG CAPSULE PO SCH (22:49)
[2017-03-21] MEDS: MORPHINE 2 MG/1 ML SYRINGE IV PRN (02:30)
[2017-03-21] MEDS: HEPARIN 5,000 UNIT/1 ML VIAL SUBCUT SCH ×3 (06:15→22:25)
[2017-03-21] MEDS: ASPIRIN EC 81 MG TABLET PO SCH (08:59)
[2017-03-21] MEDS: PANTOPRAZOLE 40 MG TABLET PO SCH (08:59)
[2017-03-21] MEDS: CALCIUM ACETATE 667 MG CAPSULE PO SCH ×3 (08:59→17:35)
[2017-03-21] MEDS: CETIRIZINE 10 MG TABLET PO SCH (08:59)
[2017-03-21] MEDS: CARVEDILOL 6.25 MG TABLET PO SCH ×2 (08:59→22:11)
[2017-03-21] MEDS: MUPIROCIN 2% OINT 22 GM TUBE TOP SCH ×3 (09:00→22:12)
[2017-03-21] MEDS: GENTAMICIN 0.1% CREAM 15 GM TUBE TOP SCH (09:03)
[2017-03-21] MEDS: ATORVASTATIN 10 MG TABLET PO SCH (22:11)
[2017-03-21] MEDS: GABAPENTIN 300 MG CAPSULE PO SCH (22:11)
[2017-03-22] MEDS: HEPARIN 5,000 UNIT/1 ML VIAL SUBCUT SCH ×3 (05:52→22:51)
[2017-03-22 06:45] LABS: Basophils % 0.3 % (0.0-0.8); Eosinophils % 0.4 % (0.00-10.9); Hematocrit 31.3 VOL% (42.0-52.0); Hemoglobin 9.9 GM/DL (14.0-18.0); Immature Granulocytes % 0.4 %; Immature Granulocytes Absolute 0.03 #; Lymphocytes # 0.6 10*3/uL (1.4-4.0); Lymphocytes % 7.2 % (21.2-54.2); Mean Corpuscular HGB Conc 31.6 GM/DL (32-36); Mean Corpuscular Hemoglobin 31 PG (27-34); Mean Corpuscular Volume 98.1 FL (87-102); Mean Platelet Volume 11.4 FL (9.6-12.0); Monocytes % 12.5 % (1.7-12.7); Neutrophils # 6.3 10*3/uL (1.4-7.4); Neutrophils % 79.2 % (38.7-73.9); Red Blood Count 3.19 MC/CUMM (3.8-5.5); Red Cell Distribution Width 19.2 % (9.3-17.3); White Blood Count 7.9 T/CUMM (4-12)
[2017-03-22 06:48] LABS: Platelet Count 78 T/CUMM (130-400)
[2017-03-22 07:06] LABS: Giant Platelets Few; Hypochromasia 1+; Ovalocytes Slight; Platelet Estimate Decreased
[2017-03-22 07:07] LABS: Microcytosis Slight
[2017-03-22 07:14] LABS: Calcium 8.6 MG/DL (8.5-10.1); Osmolality,Calculated 282.5 MOS/KG (273-304); Potassium 4.4 MMOL/L (3.5-5.1)
[2017-03-22] MEDS: ASPIRIN EC 81 MG TABLET PO SCH (08:17)
[2017-03-22] MEDS: PANTOPRAZOLE 40 MG TABLET PO SCH (08:17)
[2017-03-22] MEDS: CALCIUM ACETATE 667 MG CAPSULE PO SCH ×3 (08:17→16:42)
[2017-03-22] MEDS: CARVEDILOL 6.25 MG TABLET PO SCH ×2 (08:17→20:36)
[2017-03-22] MEDS: GENTAMICIN 0.1% CREAM 15 GM TUBE TOP SCH (08:17)
[2017-03-22] MEDS: CETIRIZINE 10 MG TABLET PO SCH (08:17)
[2017-03-22] MEDS: MUPIROCIN 2% OINT 22 GM TUBE TOP SCH ×3 (08:17→22:51)
[2017-03-22] MEDS ORDERED: VANCOMYCIN INJ 1,250 MG in SODIUM CHLORIDE 0.9% 250 ML IV ONE (18:00)
[2017-03-22] MEDS: GABAPENTIN 300 MG CAPSULE PO SCH (20:36)
[2017-03-22] MEDS: ATORVASTATIN 10 MG TABLET PO SCH (20:36)
[2017-03-23] MEDS: HEPARIN 5,000 UNIT/1 ML VIAL SUBCUT SCH ×3 (06:48→22:00)
[2017-03-23] MEDS: CARVEDILOL 6.25 MG TABLET PO SCH ×3 (08:03→20:54)
[2017-03-23] MEDS: ASPIRIN EC 81 MG TABLET PO SCH (08:03)
[2017-03-23] MEDS: CALCIUM ACETATE 667 MG CAPSULE PO SCH ×3 (08:03→16:08)
[2017-03-23] MEDS: PANTOPRAZOLE 40 MG TABLET PO SCH (08:03)
[2017-03-23] MEDS: CETIRIZINE 10 MG TABLET PO SCH (08:03)
[2017-03-23] MEDS: GENTAMICIN 0.1% CREAM 15 GM TUBE TOP SCH (08:04)
[2017-03-23] MEDS: MUPIROCIN 2% OINT 22 GM TUBE TOP SCH ×3 (08:04→20:54)
[2017-03-23] MEDS ORDERED: BUPIVACAINE 0.5% 50 ML VIAL ONE (10:44)
[2017-03-23] MEDS ORDERED: fentaNYL 100 MCG/2 ML VIAL ONE (12:18)
[2017-03-23] MEDS ORDERED: MIDAZOLAM 2 MG/2 ML VIAL ONE (12:18)
[2017-03-23] MEDS ORDERED: SODIUM CHLORIDE 0.9% 100 ML IV ONE (12:18)
[2017-03-23] MEDS: ATORVASTATIN 10 MG TABLET PO SCH (20:54)
[2017-03-23] MEDS: GABAPENTIN 300 MG CAPSULE PO SCH (20:54)
[2017-03-24] MEDS: HEPARIN 5,000 UNIT/1 ML VIAL SUBCUT SCH ×3 (07:04→21:39)
[2017-03-24] MEDS: CALCIUM ACETATE 667 MG CAPSULE PO SCH ×3 (08:48→17:42)
[2017-03-24] MEDS: CETIRIZINE 10 MG TABLET PO SCH (10:19)
[2017-03-24] MEDS: ASPIRIN EC 81 MG TABLET PO SCH (10:19)
[2017-03-24] MEDS: GENTAMICIN 0.1% CREAM 15 GM TUBE TOP SCH (10:19)
[2017-03-24] MEDS: PANTOPRAZOLE 40 MG TABLET PO SCH (10:19)
[2017-03-24] MEDS: CARVEDILOL 6.25 MG TABLET PO SCH ×2 (10:19→21:23)
[2017-03-24] MEDS: MUPIROCIN 2% OINT 22 GM TUBE TOP SCH ×3 (10:23→21:30)
[2017-03-24] MEDS ORDERED: VANCOMYCIN INJ 500 MG in SODIUM CHLORIDE 0.9% 100 ML IV ONE ×2 (16:00→18:00)
[2017-03-24] MEDS ORDERED: VANCOMYCIN INJ 500 MG in SODIUM CHLORIDE 0.9% 100 ML IV PRN (18:00)
[2017-03-24] MEDS: ATORVASTATIN 10 MG TABLET PO SCH (21:37)
[2017-03-24] MEDS: GABAPENTIN 300 MG CAPSULE PO SCH (21:37)
[2017-03-25] MEDS: HEPARIN 5,000 UNIT/1 ML VIAL SUBCUT SCH (05:08)
[2017-03-25] MEDS: CALCIUM ACETATE 667 MG CAPSULE PO SCH (08:55)
[2017-03-25] MEDS: CETIRIZINE 10 MG TABLET PO SCH (08:56)
[2017-03-25] MEDS: CARVEDILOL 6.25 MG TABLET PO SCH (08:56)
[2017-03-25] MEDS: ASPIRIN EC 81 MG TABLET PO SCH (08:56)
[2017-03-25] MEDS: PANTOPRAZOLE 40 MG TABLET PO SCH (08:56)
[2017-03-25 09:37] VITALS: BP 109/59
[2017-03-25] MEDS: GENTAMICIN 0.1% CREAM 15 GM TUBE TOP SCH (10:31)
[2017-03-25] MEDS: MUPIROCIN 2% OINT 22 GM TUBE TOP SCH (10:49)
== END 2017-03-25 11:30 | disposition home health service (06) | DRG 255 ==
LOC: EDUNIT# → N.ED 20:17 → N.EDINP 23:36 → N.ICU 03-19 00:16 → N.5E 03-20 11:18

== ENCOUNTER 2017-03-26 13:35 | Inpatient (IN) ==
[2017-03-26] MEDS ORDERED: LEVOFLOXACIN INJ 750 MG in PREMIX 1 EACH IV STA (13:47)
[2017-03-26] MEDS ORDERED: NOREPINEPHRINE 16 MG in SODIUM CHLORIDE 0.9% 234 ML IV SCH (14:00)
[2017-03-26 14:07] LABS: ABG HCO3 24.3 MMOL/L (20-26); ABG Oxygen Saturation 92.5 % (95-100); ABG PCO2 40.5 MM HG (35-48); ABG PH 7.395 (7.35-7.45); ABG PO2 72.5 MM HG (80-95); ABG TCO2 22.4 MMOL/L (23-27)
[2017-03-26 14:08] LABS: Basophils % 0.3 % (0.0-0.8); Eosinophils % 0.1 % (0.00-10.9); Hematocrit 33.6 VOL% (42.0-52.0); Hemoglobin 10.7 GM/DL (14.0-18.0); Immature Granulocytes % 0.9 %; Immature Granulocytes Absolute 0.07 #; Lymphocytes # 0.3 10*3/uL (1.4-4.0); Lymphocytes % 3.8 % (21.2-54.2); Mean Corpuscular HGB Conc 31.8 GM/DL (32-36); Mean Corpuscular Hemoglobin 31 PG (27-34); Mean Corpuscular Volume 98.2 FL (87-102); Mean Platelet Volume 12.4 FL (9.6-12.0); Monocytes # 0.3 10*3/uL (0.11-0.8); Monocytes % 3.3 % (1.7-12.7); Neutrophils # 6.9 10*3/uL (1.4-7.4); Neutrophils % 91.6 % (38.7-73.9); Platelet Count 83 T/CUMM (130-400); Red Blood Count 3.42 MC/CUMM (3.8-5.5); White Blood Count 7.6 T/CUMM (4-12)
[2017-03-26 14:21] LABS: INR 1.4; PT Patient Result 14.1 SECS; Partial Thromboplastin Time 35.6 SECS (0-40)
[2017-03-26 14:34] LABS: CKMB % 6.2 %; Calcium 9.9 MG/DL (8.5-10.1); Osmolality,Calculated 289.3 MOS/KG (273-304)
[2017-03-26 14:35] LABS: Troponin I Only 0.734 NG/ML (0.00-0.045)
[2017-03-26 14:44] LABS: Lymphocytes 5 % (20-55); Segmented Neutrophils 92 % (50-85); Total Cells Counted 100
[2017-03-26 14:45] LABS: Ovalocytes Few; Platelet Estimate Decreased; Poikilocytosis 1+; Tear Drop Cells Few
[2017-03-26] MEDS ORDERED: LEVOFLOXACIN INJ 150 ML IV ONE (14:57)
[2017-03-26] MEDS ORDERED: MORPHINE 2 MG/1 ML SYRINGE IV PRN (15:50)
[2017-03-26] MEDS: ENOXAPARIN 30 MG/0.3 ML SYRINGE SUBCUT SCH (17:15)
[2017-03-27 05:48] LABS: Basophils % 0.2 % (0.0-0.8); Hematocrit 31.5 VOL% (42.0-52.0); Hemoglobin 10.5 GM/DL (14.0-18.0); Immature Granulocytes % 1.6 %; Immature Granulocytes Absolute 0.14 #; Lymphocytes # 0.3 10*3/uL (1.4-4.0); Lymphocytes % 3.1 % (21.2-54.2); Mean Corpuscular HGB Conc 33.3 GM/DL (32-36); Mean Corpuscular Hemoglobin 31 PG (27-34); Mean Corpuscular Volume 94.3 FL (87-102); Mean Platelet Volume 10.9 FL (9.6-12.0); Monocytes # 0.5 10*3/uL (0.11-0.8); Monocytes % 5.8 % (1.7-12.7); Neutrophils # 7.9 10*3/uL (1.4-7.4); Neutrophils % 89.3 % (38.7-73.9); Platelet Count 66 T/CUMM (130-400); Red Blood Count 3.34 MC/CUMM (3.8-5.5); Red Cell Distribution Width 18.6 % (9.3-17.3); White Blood Count 8.8 T/CUMM (4-12)
[2017-03-27 06:15] LABS: Band Neutrophils 11 % (0-10); Lymphocytes 5 % (20-55); Platelet Estimate Decreased; Segmented Neutrophils 76 % (50-85); Total Cells Counted 100
[2017-03-27 06:16] LABS: Giant Platelets Few; Hypochromasia 1+; Microcytosis Slight; Ovalocytes Slight
[2017-03-27 06:17] LABS: Calcium 8.9 MG/DL (8.5-10.1); Osmolality,Calculated 290.3 MOS/KG (273-304); Potassium 4.4 MMOL/L (3.5-5.1)
[2017-03-27 09:19] LABS: Pt O2 Delivery Device Ventilator
[2017-03-27 09:20] LABS: ABG Base Excess 4.5 MMOL/L (-2.5-2.5); ABG HCO3 27.8 MMOL/L (20-26); ABG Oxygen Saturation 97.1 % (95-100); ABG PCO2 36.5 MM HG (35-48); ABG PH 7.499 (7.35-7.45); ABG PO2 97.2 MM HG (80-95); ABG TCO2 28.9 MMOL/L (23-27)
[2017-03-27] MEDS: ENOXAPARIN 30 MG/0.3 ML SYRINGE SUBCUT SCH (17:25)
[2017-03-27] MEDS: CLINDAMYCIN INJ 300 MG in PREMIX 1 EACH IV SCH (18:24)
[2017-03-27] MEDS ORDERED: SKIN HEALING OINT (AQUAPHOR) 50 GM TUBE TOP PRN (19:48)
[2017-03-28] MEDS: CLINDAMYCIN INJ 300 MG in PREMIX 1 EACH IV SCH ×2 (02:15→09:25)
[2017-03-28 04:35] LABS: ABG Base Excess 2.8 MMOL/L (-2.5-2.5); ABG HCO3 26.8 MMOL/L (20-26); ABG PCO2 42.2 MM HG (35-48); ABG PH 7.422 (7.35-7.45); ABG TCO2 24.1 MMOL/L (23-27); Allen Test Positive; Pt O2 Delivery Device Ventilator
[2017-03-28 05:53] LABS: Basophils % 0.1 % (0.0-0.8); Hematocrit 32.3 VOL% (42.0-52.0); Hemoglobin 10.7 GM/DL (14.0-18.0); Immature Granulocytes % 0.6 %; Immature Granulocytes Absolute 0.06 #; Lymphocytes # 0.7 10*3/uL (1.4-4.0); Lymphocytes % 6.8 % (21.2-54.2); Mean Corpuscular HGB Conc 33.1 GM/DL (32-36); Mean Corpuscular Hemoglobin 31 PG (27-34); Mean Corpuscular Volume 94.2 FL (87-102); Mean Platelet Volume 11.9 FL (9.6-12.0); Monocytes # 0.8 10*3/uL (0.11-0.8); Monocytes % 8.6 % (1.7-12.7); Neutrophils # 8.1 10*3/uL (1.4-7.4); Neutrophils % 83.9 % (38.7-73.9); Platelet Count 126 T/CUMM (130-400); Red Blood Count 3.43 MC/CUMM (3.8-5.5); White Blood Count 9.7 T/CUMM (4-12)
[2017-03-28 06:27] LABS: Calcium 8.9 MG/DL (8.5-10.1); Osmolality,Calculated 295.3 MOS/KG (273-304); Potassium 5.1 MMOL/L (3.5-5.1)
[2017-03-28] MEDS ORDERED: MUPIROCIN 2% OINT 22 GM TUBE TOP SCH (13:00)
[2017-03-28 15:02] VITALS: BP 108/62
== END 2017-03-28 14:49 | disposition expired | DRG 208 ==
LOC: EDUNIT# → N.ED 13:35 → N.EDINP 14:49 → SUATTDRO 14:49 → N.ICU 16:34
PROVIDERS: ATTEND Internal Medicine